=== PATIENT | male | born 1995 | race Caucasian/White ===

== ENCOUNTER 2019-07-23 22:22 | Emergency (ER) | payer SELFPAY ==
[2019-07-23 22:31] VITALS: BP 151/81; PULSE 117
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
== END 2019-07-23 23:18 | disposition home or self-care (01) ==
LOC: DL.ED 22:22
DX: S29.011A Strain of muscle and tendon of front wall of thorax, initial encounter (principal); Z77.22 Contact with and (suspected) exposure to environmental tobacco smoke (acute) (chronic); V18.0XXA Pedal cycle driver injured in noncollision transport accident in nontraffic accident, initial encounter
CPT/HCPCS: 71101-LT; 99284-25

== ENCOUNTER 2019-10-28 22:09 | Emergency (ER) | payer SELFPAY ==
[2019-10-28 23:05] VITALS: BP 122/92; PULSE 102
== END 2019-10-29 01:31 | disposition left against medical advice (07) ==
LOC: DL.ED 22:09
DX: Z53.21 Procedure and treatment not carried out due to patient leaving prior to being seen by health care provider (principal)

== ENCOUNTER 2021-10-19 13:49 | Inpatient (IN) | payer SELFPAY ==
[2021-10-19] MEDS ORDERED: levETIRAcetam in NaCl (iso-os) 1,000 MG in Premix Bag 1 BAG IV ONE ×2 (14:28)
--- NOTE | 2021-10-19 14:28 | EDM.PDOC ---
ED HPI GENERAL MEDICAL PROBLEM - General Chief Complaint: Neurological Problem Stated Complaint: HAD A SEIZURE, HISTORY OF THEM /VERY CONFUSED Time Seen by Provider: 10/19/21 14:27 Source of Information: Reports: Patient, RN, RN Notes Reviewed History Limitations: Reports: No Limitations - History of Present Illness INITIAL COMMENTS - FREE TEXT/NARRATIVE: Samir is a 26 y/o male with a history seizures who presents to the ED via personal vehicle with complaints of seizure-like activity and confusion. The patient reports he woke in his bedroom to his friends stating his appeared to have a seizure. He is alert and oriented to self, however transiently disoriented to time, situation, and place. He denies recent injuries or falls. He denies pain to his head, neck, trunk, or extremities. He denies recent illness, fever, shaking chills, chest pain, palpitations, dyspepsia, abdominal pain, nausea, vomiting, dysuria, hematuria, diarrhea, hematochezia, or melena. The patient attests to drink 5-6 alcoholic drinks three times a week as well as smoking cannabis nightly; he denies tobacco use. - Related Data Allergies Allergy/AdvReac Type Severity Reaction Status Date / Time shellfish derived Allergy Rash Verified 10/19/21 14:02 Home Meds: Home Meds Folic Acid 1 mg PO DAILY #14 tablet 10/21/21 [Rx] LORazepam [Ativan] 0.5 mg PO Q6H PRN #5 tablet 10/21/21 [Rx] Magnesium Oxide 250 mg PO BIDM #6 tablet 10/21/21 [Rx] Phosphorus #1 [Neutra-Phos] 250 mg PO TID #6 tablet 10/21/21 [Rx] Thiamine [Vitamin B-1] 100 mg PO DAILY #14 tablet 10/21/21 [Rx] Past Medical History - Past Health History Medical/Surgical History: Denies Medical/Surgical History Musculoskeletal History: Reports: Fracture Neurological History: Reports: Seizure - Past Surgical History Other Musculoskeletal Surgeries/Procedures:: fracture ava. tendon repain left hand Social & Family History - Family History Family Medical History: No Pertinent Family History Neurological: Reports: CVA Oncologic: Reports: Colon - Tobacco Use Tobacco Use Status *Q: Never Tobacco User Second Hand Smoke Exposure: No - Caffeine Use Caffeine Use: Reports: Energy Drinks, Soda - Recreational Drug Use Recreational Drug Use: Yes Drug Use in Last 12 Months: Yes Recreational Drug Type: Reports: Marijuana/Hashish Recreational Drug Use Frequency: Daily ED ROS GENERAL - Review of Systems Review Of Systems: Comprehensive ROS is negative, except as noted in HPI. - Physical Exam Exam: See Below Exam Limited By: Altered Mental Status General Appearance: Alert, Mild Distress (Confusion, Resting tremer), Thin, Other (Dissheveled) Eye Exam: Bilateral Eye: EOMI, PERRL (4mm), Other (Scleral icterus, faint) Ears: Normal External Exam, Normal Canal, Hearing Grossly Normal, Normal TMs Nose: Normal Inspection, Normal Mucosa, No Blood Throat/Mouth: Normal Voice, No Airway Compromise. No: Normal Inspection, Normal Oropharynx (Dry mucous membranes) Head Exam: Atraumatic, Normocephalic Neck: Normal Inspection, Supple, Non-Tender, Full Range of Motion Respiratory/Chest: No Respiratory Distress, Lungs Clear, Normal Breath Sounds, No Accessory Muscle Use, Chest Non-Tender Cardiovascular: Normal Peripheral Pulses, Regular Rate, Rhythm, No Gallop, No Murmur, No Rub, Tachycardia GI/Abdominal: Normal Bowel Sounds, Soft, Non-Tender, No Distention, No Abnormal Bruit, No Mass, Pelvis Stable (Male) Exam: Deferred Rectal (Males) Exam: Deferred Neuro Exam (Abbreviated): Alert, Disoriented (Transiently to place, time, and situation), Abnormal Reflexes, Sensory/Motor Deficit Back Exam: Normal Inspection, Full Range of Motion Extremities: Normal Range of Motion, Non-Tender, No Pedal Edema, Normal Capillary Refill, Other (Tremulous) Psychiatric: Normal Mood Skin Exam: Warm, Dry, Intact, Normal Color, No Rash. No: Cyanosis, Jaundice, Mottled, Pallor Course - Vital Signs Last Recorded V/S: Last Vital Signs Temp 97.3 F 10/21/21 08:11 Pulse 96 10/21/21 08:11 Resp 20 10/21/21 08:11 BP 147/97 H 10/21/21 08:11 Pulse Ox 99 10/21/21 08:11 - Orders/Labs/Meds Labs: Laboratory Tests 10/19/21 10/19/21 10/19/21 Range/Units 14:06 14:19 14:19 WBC 9.2 (5.0-10.0) 10^3/uL RBC 4.66 (4.6-6.2) 10^6/uL Hgb 15.7 (14.0-18.0) g/dL Hct 43.8 (40.0-54.0) % MCV 94.0 (80-100) fL MCH 33.7 (27.0-34.0) pg MCHC 35.8 H (33.0-35.0) g/dL Plt Count 203 (150-450) 10^3/uL Neut % (Auto) 74.4 (42.2-75.2) % Lymph % (Auto) 10.0 L (20.5-50.1) % Lyman % (Auto) 15.5 H (2-8) % Eos % (Auto) 0.1 L (1.0-3.0) % Baso % (Auto) 0.0 (0.0-1.0) % Sodium 130 L (136-145) mmol/L Potassium 2.1 L* (3.5-5.1) mmol/L Chloride 81 L (98-107) mmol/L Carbon Dioxide 36 H (21-32) mmol/L Anion Gap 15.1 H (7-13) mEq/L BUN 15 (7-18) mg/dL Creatinine 1.16 (0.70-1.30) mg/dL Est Cr Clr Drug Dosing 115.34 mL/min Estimated GFR (MDRD) > 60 BUN/Creatinine Ratio 12.9 (No establ ref range) Glucose 144 H (70-99) mg/dL POC Glucose 162 H (70-99) mg/dL Hemoglobin A1c (<5.7) % Lactic Acid (0.4-2.0) mmol/L Calcium 8.2 L (8.5-10.1) mg/dL Magnesium 0.8 L (1.8-2.4) mg/dL Total Bilirubin 2.3 H (0.2-1.0) mg/dL AST 202 H (15-37) U/L ALT 102 H (16-63) U/L Alkaline Phosphatase 162 H (46-116) U/L Ammonia (11-32) umol/L Troponin I High Sens 7 (<=76) pg/mL C-Reactive Protein 0.8 (0.0-0.9) mg/dL Total Protein 8.1 (6.4-8.2) g/dL Albumin 3.6 (3.4-5.0) g/dL Globulin 4.5 Albumin/Globulin Ratio 0.8 Ethyl Alcohol < 3 (0) mg/dL Ketones SARS-CoV-2 RNA (YURI) (NEGATIVE) 10/19/21 10/19/21 10/19/21 Range/Units 14:19 14:19 14:19 WBC (5.0-10.0) 10^3/uL RBC (4.6-6.2) 10^6/uL Hgb (14.0-18.0) g/dL Hct (40.0-54.0) % MCV (80-100) fL MCH (27.0-34.0) pg MCHC (33.0-35.0) g/dL Plt Count (150-450) 10^3/uL Neut % (Auto) (42.2-75.2) % Lymph % (Auto) (20.5-50.1) % Lyman % (Auto) (2-8) % Eos % (Auto) (1.0-3.0) % Baso % (Auto) (0.0-1.0) % Sodium (136-145) mmol/L Potassium (3.5-5.1) mmol/L Chloride (98-107) mmol/L Carbon Dioxide (21-32) mmol/L Anion Gap (7-13) mEq/L BUN (7-18) mg/dL Creatinine (0.70-1.30) mg/dL Est Cr Clr Drug Dosing mL/min Estimated GFR (MDRD) BUN/Creatinine Ratio (No establ ref range) Glucose (70-99) mg/dL POC Glucose (70-99) mg/dL Hemoglobin A1c 5.3 (<5.7) % Lactic Acid 2.9 H* (0.4-2.0) mmol/L Calcium (8.5-10.1) mg/dL Magnesium (1.8-2.4) mg/dL Total Bilirubin (0.2-1.0) mg/dL AST (15-37) U/L ALT (16-63) U/L Alkaline Phosphatase (46-116) U/L Ammonia (11-32) umol/L Troponin I High Sens (<=76) pg/mL C-Reactive Protein (0.0-0.9) mg/dL Total Protein (6.4-8.2) g/dL Albumin (3.4-5.0) g/dL Globulin Albumin/Globulin Ratio Ethyl Alcohol (0) mg/dL Ketones Negative SARS-CoV-2 RNA (YURI) (NEGATIVE) 10/19/21 10/19/21 10/19/21 Range/Units 14:50 15:46 15:46 WBC (5.0-10.0) 10^3/uL RBC (4.6-6.2) 10^6/uL Hgb (14.0-18.0) g/dL Hct (40.0-54.0) % MCV (80-100) fL MCH (27.0-34.0) pg MCHC (33.0-35.0) g/dL Plt Count (150-450) 10^3/uL Neut % (Auto) (42.2-75.2) % Lymph % (Auto) (20.5-50.1) % Lyman % (Auto) (2-8) % Eos % (Auto) (1.0-3.0) % Baso % (Auto) (0.0-1.0) % Sodium 132 L (136-145) mmol/L Potassium 2.1 L* (3.5-5.1) mmol/L Chloride 84 L (98-107) mmol/L Carbon Dioxide 40 H (21-32) mmol/L Anion Gap 10.1 (7-13) mEq/L BUN 15 (7-18) mg/dL Creatinine 1.21 (0.70-1.30) mg/dL Est Cr Clr Drug Dosing 110.57 mL/min Estimated GFR (MDRD) > 60 BUN/Creatinine Ratio 12.4 (No establ ref range) Glucose 115 H (70-99) mg/dL POC Glucose (70-99) mg/dL Hemoglobin A1c (<5.7) % Lactic Acid (0.4-2.0) mmol/L Calcium 8.2 L (8.5-10.1) mg/dL Magnesium 1.1 L (1.8-2.4) mg/dL Total Bilirubin 2.2 H (0.2-1.0) mg/dL AST 201 H (15-37) U/L ALT 105 H (16-63) U/L Alkaline Phosphatase 155 H (46-116) U/L Ammonia 12 (11-32) umol/L Troponin I High Sens (<=76) pg/mL C-Reactive Protein (0.0-0.9) mg/dL Total Protein 7.8 (6.4-8.2) g/dL Albumin 3.5 (3.4-5.0) g/dL Globulin 4.3 Albumin/Globulin Ratio 0.8 Ethyl Alcohol (0) mg/dL Ketones SARS-CoV-2 RNA (YUIR) Negative (NEGATIVE) Meds: Medications Discontinued Medications Generic Name Dose Route Start Last Admin Trade Name Freq PRN Reason Stop Dose Admin Acetaminophen 650 mg 10/19/21 18:10 Acetaminophen 325 Mg Tab PO Q4H PRN Pain (Mild 1-3)/fever Docusate Sodium 100 mg 10/19/21 18:10 Docusate Sodium 100 Mg Cap PO BID PRN Constipation Folic Acid 1 mg 10/20/21 08:00 10/21/21 09:33 Folic Acid 1 Mg Tab PO 1 mg DAILY ZAHRAA Administration Heparin Sodium (Porcine) 5,000 units 10/19/21 22:00 10/21/21 06:00 Heparin Sodium 5,000 Units/Ml Vial SUBCUT 5,000 units Q8HR ZAHRAA Administration Levetiracetam 1,000 mg/ Premix 200 mls @ 800 mls/hr 10/19/21 14:28 10/19/21 15:01 IV 10/19/21 14:29 800 mls/hr ONETIME ONE Administration Potassium Chloride/Sodium Chloride 1,000 mls @ 150 mls/hr 10/19/21 15:15 10/21/21 10:35 Normal Saline With 40 Meq Kcl IV 150 mls/hr ASDIRECTED ZAHRAA Administration Magnesium Sulfate 2 gm/ Premix 50 mls @ 25 mls/hr 10/19/21 15:04 10/19/21 15:14 IV 10/19/21 17:03 25 mls/hr ONETIME ONE Administration Potassium Chloride 10 meq/ 100 mls @ 50 mls/hr 10/19/21 17:15 Premix IV 10/20/21 05:14 Q2H ZAHRAA Potassium Chloride 10 meq/ 100 mls @ 50 mls/hr 10/19/21 19:30 10/20/21 05:36 Premix IV 10/20/21 07:29 50 mls/hr Q2H ZAHRAA Administration Lorazepam 0 mg 10/19/21 17:46 10/21/21 01:05 Lorazepam 0.5 Mg Tab PO 2 mg TITRATE PRN Administration [facility] protocol Protocol Lorazepam 0 mg 10/19/21 17:46 10/20/21 22:41 Lorazepam 2 Mg/Ml Sdv IVPUSH 2 mg TITRATE PRN Administration [facility] protocol Protocol Magnesium Oxide 250 mg 10/21/21 18:00 Magnesium Oxide 250 Mg Tab PO 10/22/21 08:01 BIDMEALS ZAHRAA Multivitamins/Minerals 1 tab 10/20/21 09:00 10/21/21 09:32 Multivitamins With Iron/Calcium/Folic Acid/Minerals Tab PO 1 tab DAILY ZAHRAA Administration Ondansetron HCl 4 mg 10/19/21 18:10 Ondansetron 4 Mg Tab.Dis PO Q6H PRN nausea, able to take PO Ondansetron HCl 4 mg 10/19/21 18:10 Ondansetron 4 Mg/2 Ml Sdv IVPUSH Q6H PRN Nausea/Vomiting Oxycodone HCl 5 mg 10/19/21 18:10 10/19/21 19:45 Oxycodone 5 Mg Tab PO 5 mg Q4H PRN Administration Pain (moderate 4-6) Sodium Chloride 10 ml 10/19/21 21:00 10/21/21 09:34 Sodium Chloride 0.9% 10 Ml Syringe FLUSH 10 ml 0900,2100 ZAHRAA Administration Sodium Phosphate 250 mg 10/21/21 13:00 Phosphorus #1 250 Mg Tab PO QID ZAHRAA Temazepam 15 mg 10/19/21 18:10 Temazepam 15 Mg Cap PO BEDTIME PRN Sleep Thiamine HCl 100 mg 10/20/21 09:00 10/21/21 09:33 Thiamine 100 Mg Tab PO 100 mg DAILY ZAHRAA Administration - Radiology Interpretation Free Text/Narrative:: [facility] Final Radiology Report Call: [phone] assistance Online chat: [email or web address] Name: SAMIR RAJAN Age: 26Years M Date: 10/19/2021 SSN: -- : [id number] Study: CT HEAD WO CONT Requesting Physician: Moriah Calderon Images: [id number] Addl Studies: Provided Clinical History: Seizure w/persistent disorientation Contrast: Without Contrast Medium: Contrast Amount: Contrast Method: CONFIDENTIALITY STATEMENT This report is intended only for use by the referring physician, and only in accordance with law. If you received this in error, call [phone]. Page 1 of 1 PROCEDURE INFORMATION: Exam: CT Head Without Contrast Exam date and time: 10/19/2021 3:33 PM Age: 26 years old Clinical indication: Other: Seizure; Additional info: Seizure w/persistent disorientation TECHNIQUE: Imaging protocol: Computed tomography of the head without contrast. Radiation optimization: All CT scans at this facility use at least one of these dose optimization techniques: automated exposure control; mA and/or kV adjustment per patient size (includes targeted exams where dose is matched to clinical indication); or iterative reconstruction. COMPARISON: No relevant prior studies available. FINDINGS: Brain: Normal. No hemorrhage. Unremarkable white matter. No mass effect. Cerebral ventricles: No ventriculomegaly. Paranasal sinuses: Visualized sinuses are unremarkable. No fluid levels. Mastoid air cells: Visualized mastoid air cells are well aerated. Bones/joints: Unremarkable. No acute fracture. Soft tissues: Unremarkable. IMPRESSION: No acute intracranial abnormality. Thank you for allowing us to participate in the care of your patient. Dictated and Authenticated by: Nickolas Norman MD 10/19/2021 4:13 PM Central Time ([place] & [place]) - Re-Assessments/Exams Free Text/Narrative Re-Assessment/Exam: 10/19/[address] obtained given AMS. Keppra 1gm IVPB administered. NS KCl 40mEq at 250mLs/hr, and Mag Sulfate 2gm IVPB administered. Case discussed with Dr. Best who accepted patient for admission to this facility for AMS and hypokalemia. Findings of examination, lab work, and imaging reviewed with patient. Patient verbalized understanding and agreement with the plan of care. Departure - Departure Time of Disposition: 16:20 Disposition: Refer to Observation Clinical Impression: Hypokalemia, Hypomagnesemia, Elevated liver enzymes Altered mental status Qualifiers: Altered mental status type: delirium Qualified Code(s): R41.0 - Disorientation, unspecified - Discharge Information
[2021-10-19 14:51] LABS: ANION GAP 15.1 mEq/L (7-13); CHLORIDE,CL 81 mmol/L (98-107); SODIUM,NA 130 mmol/L (136-145)
[2021-10-19] MEDS ORDERED: Magnesium Sulfate/Water 2 GM in Premix Bag 1 BAG IV ONE (15:04)
[2021-10-19] MEDS: Sodium Chloride 0.9% with KCl 1,000 ML IV SCH ×3 (15:20→23:31)
[2021-10-19 15:35] LABS: HEMOGLOBIN A1C 5.3 % (<5.7)
--- NOTE | 2021-10-19 16:13 | CT ---
PROCEDURE INFORMATION: Exam: CT Head Without Contrast Exam date and time: 10/19/2021 3:33 PM Age: 26 years old Clinical indication: Other: Seizure; Additional info: Seizure w/persistent disorientation TECHNIQUE: Imaging protocol: Computed tomography of the head without contrast. Radiation optimization: All CT scans at this facility use at least one of these dose optimization techniques: automated exposure control; mA and/or kV adjustment per patient size (includes targeted exams where dose is matched to clinical indication); or iterative reconstruction. COMPARISON: No relevant prior studies available. FINDINGS: Brain: Normal. No hemorrhage. Unremarkable white matter. No mass effect. Cerebral ventricles: No ventriculomegaly. Paranasal sinuses: Visualized sinuses are unremarkable. No fluid levels. Mastoid air cells: Visualized mastoid air cells are well aerated. Bones/joints: Unremarkable. No acute fracture. Soft tissues: Unremarkable. IMPRESSION: No acute intracranial abnormality.
[2021-10-19 16:31] LABS: ANION GAP 10.1 mEq/L (7-13); CHLORIDE,CL 84 mmol/L (98-107); SODIUM,NA 132 mmol/L (136-145)
[2021-10-19] MEDS ORDERED: Potassium Chloride 10 MEQ in Premix Bag 1 BAG IV SCH (17:15)
[2021-10-19] MEDS ORDERED: LORazepam 0.5 MG Tab PO PRN (17:46)
[2021-10-19] MEDS ORDERED: Acetaminophen 325 MG Tab PO PRN (18:10)
[2021-10-19] MEDS ORDERED: Docusate Sodium 100 MG Cap PO PRN (18:10)
[2021-10-19] MEDS ORDERED: Ondansetron 4 MG Tab.DIS PO PRN (18:10)
[2021-10-19] MEDS ORDERED: oxyCODONE 5 MG Tab PO PRN (18:10)
[2021-10-19] MEDS ORDERED: Ondansetron 4 MG/2 ML SDV IVPUSH PRN (18:10)
[2021-10-19] MEDS ORDERED: Temazepam 15 MG Cap PO PRN (18:10)
--- NOTE | 2021-10-19 18:26 | PCM.HP ---
H&P History of Present Illness - General Date of Service: 10/19/21 Admit Problem/Dx: Admission Diagnosis/Problem Admission Diagnosis/Problem Hypokalemia Source of Information: Patient History Limitations: Reports: Altered Mental Status - History of Present Illness Initial Comments - Free Text/Narative: patient is poor historian in summary he does not know how he ended up in the ER per report he had seizure like activity and friends brought him in to the er he reports drinking 5 vodka drinks on working nights reports marijuana use he admits diarrhea x 1 admits occasional morning vomiting no h/a, no fever, no abd pain - Related Data Allergies/Adverse Reactions: Allergies Allergy/AdvReac Type Severity Reaction Status Date / Time shellfish derived Allergy Rash Verified 10/19/21 14:02 Home Medications: Home Meds . [No Known Home Meds] 03/26/15 [History] Past Medical History - Past Health History Medical/Surgical History: Denies Medical/Surgical History Musculoskeletal History: Reports: Fracture Neurological History: Reports: Seizure - Past Surgical History Other Musculoskeletal Surgeries/Procedures:: fracture ava. tendon repain left hand Social & Family History - Family History Family Medical History: No Pertinent Family History Neurological: Reports: CVA Oncologic: Reports: Colon - Tobacco Use Tobacco Use Status *Q: Never Tobacco User Second Hand Smoke Exposure: No - Caffeine Use Caffeine Use: Reports: Energy Drinks, Soda - Recreational Drug Use Recreational Drug Use: Yes Drug Use in Last 12 Months: Yes Recreational Drug Type: Reports: Marijuana/Hashish Recreational Drug Use Frequency: Daily H&P Review of Systems - Review of Systems: Review Of Systems: See Below General: Denies: Fever, Chills, Malaise Pulmonary: Denies: Shortness of Breath Cardiovascular: Denies: Chest Pain Gastrointestinal: Reports: Diarrhea, Nausea, Vomiting. Denies: Abdominal Pain Genitourinary: Denies: Dysuria Psychiatric: Reports: Confusion. Denies: Hallucinations Exam - Exam Exam: See Below - Vital Signs Vital Signs: Last Vital Signs Temp 97.5 F 10/19/21 13:54 Pulse 117 H 10/19/21 13:54 Resp 18 10/19/21 13:54 BP 129/99 H 10/19/21 13:54 Pulse Ox 95 10/19/21 13:54 Weight: 190 lb 8 oz - Exam General: Alert, Oriented Neck: Supple Lungs: Clear to Auscultation, Normal Respiratory Effort Cardiovascular: Regular Rate, Regular Rhythm GI/Abdominal Exam: Normal Bowel Sounds, Soft, Non-Tender Extremities: No Pedal Edema Skin: Warm, Dry Neuro Extensive - Mental Status: Alert, Other (oriented to place, person but not to recent events) Psychiatric: Alert, Normal Affect, Normal Mood - Patient Data Lab Results Last 24 hrs: Laboratory Results - last 24 hr 10/19/21 10/19/21 10/19/21 Range/Units 14:06 14:19 14:19 WBC 9.2 (5.0-10.0) 10^3/uL RBC 4.66 (4.6-6.2) 10^6/uL Hgb 15.7 (14.0-18.0) g/dL Hct 43.8 (40.0-54.0) % MCV 94.0 (80-100) fL MCH 33.7 (27.0-34.0) pg MCHC 35.8 H (33.0-35.0) g/dL Plt Count 203 (150-450) 10^3/uL Neut % (Auto) 74.4 (42.2-75.2) % Lymph % (Auto) 10.0 L (20.5-50.1) % [place] % (Auto) 15.5 H (2-8) % Eos % (Auto) 0.1 L (1.0-3.0) % Baso % (Auto) 0.0 (0.0-1.0) % Sodium 130 L (136-145) mmol/L Potassium 2.1 L* (3.5-5.1) mmol/L Chloride 81 L (98-107) mmol/L Carbon Dioxide 36 H (21-32) mmol/L Anion Gap 15.1 H (7-13) mEq/L BUN 15 (7-18) mg/dL Creatinine 1.16 (0.70-1.30) mg/dL Est Cr Clr Drug Dosing 115.34 mL/min Estimated GFR (MDRD) > 60 BUN/Creatinine Ratio 12.9 (No establ ref range) Glucose 144 H (70-99) mg/dL POC Glucose 162 H (70-99) mg/dL Hemoglobin A1c (<5.7) % Lactic Acid (0.4-2.0) mmol/L Calcium 8.2 L (8.5-10.1) mg/dL Magnesium 0.8 L (1.8-2.4) mg/dL Total Bilirubin 2.3 H (0.2-1.0) mg/dL AST 202 H (15-37) U/L ALT 102 H (16-63) U/L Alkaline Phosphatase 162 H (46-116) U/L Ammonia (11-32) umol/L Troponin I High Sens 7 (<=76) pg/mL C-Reactive Protein 0.8 (0.0-0.9) mg/dL Total Protein 8.1 (6.4-8.2) g/dL Albumin 3.6 (3.4-5.0) g/dL Globulin 4.5 Albumin/Globulin Ratio 0.8 Ethyl Alcohol < 3 (0) mg/dL Ketones SARS-CoV-2 RNA ([facility]URI) (NEGATIVE) 10/19/21 10/19/21 10/19/21 Range/Units 14:19 14:19 14:19 WBC (5.0-10.0) 10^3/uL RBC (4.6-6.2) 10^6/uL Hgb (14.0-18.0) g/dL Hct (40.0-54.0) % MCV (80-100) fL MCH (27.0-34.0) pg MCHC (33.0-35.0) g/dL Plt Count (150-450) 10^3/uL Neut % (Auto) (42.2-75.2) % Lymph % (Auto) (20.5-50.1) % [place] % (Auto) (2-8) % Eos % (Auto) (1.0-3.0) % Baso % (Auto) (0.0-1.0) % Sodium (136-145) mmol/L Potassium (3.5-5.1) mmol/L Chloride (98-107) mmol/L Carbon Dioxide (21-32) mmol/L Anion Gap (7-13) mEq/L BUN (7-18) mg/dL Creatinine (0.70-1.30) mg/dL Est Cr Clr Drug Dosing mL/min Estimated GFR (MDRD) BUN/Creatinine Ratio (No establ ref range) Glucose (70-99) mg/dL POC Glucose (70-99) mg/dL Hemoglobin A1c 5.3 (<5.7) % Lactic Acid 2.9 H* (0.4-2.0) mmol/L Calcium (8.5-10.1) mg/dL Magnesium (1.8-2.4) mg/dL Total Bilirubin (0.2-1.0) mg/dL AST (15-37) U/L ALT (16-63) U/L Alkaline Phosphatase (46-116) U/L Ammonia (11-32) umol/L Troponin I High Sens (<=76) pg/mL C-Reactive Protein (0.0-0.9) mg/dL Total Protein (6.4-8.2) g/dL Albumin (3.4-5.0) g/dL Globulin Albumin/Globulin Ratio Ethyl Alcohol (0) mg/dL Ketones Negative SARS-CoV-2 RNA (YURI) (NEGATIVE) 10/19/21 10/19/21 10/19/21 Range/Units 14:50 15:46 15:46 WBC (5.0-10.0) 10^3/uL RBC (4.6-6.2) 10^6/uL Hgb (14.0-18.0) g/dL Hct (40.0-54.0) % MCV (80-100) fL MCH (27.0-34.0) pg MCHC (33.0-35.0) g/dL Plt Count (150-450) 10^3/uL Neut % (Auto) (42.2-75.2) % Lymph % (Auto) (20.5-50.1) % [place] % (Auto) (2-8) % Eos % (Auto) (1.0-3.0) % Baso % (Auto) (0.0-1.0) % Sodium 132 L (136-145) mmol/L Potassium 2.1 L* (3.5-5.1) mmol/L Chloride 84 L (98-107) mmol/L Carbon Dioxide 40 H (21-32) mmol/L Anion Gap 10.1 (7-13) mEq/L BUN 15 (7-18) mg/dL Creatinine 1.21 (0.70-1.30) mg/dL Est Cr Clr Drug Dosing 110.57 mL/min Estimated GFR (MDRD) > 60 BUN/Creatinine Ratio 12.4 (No establ ref range) Glucose 115 H (70-99) mg/dL POC Glucose (70-99) mg/dL Hemoglobin A1c (<5.7) % Lactic Acid (0.4-2.0) mmol/L Calcium 8.2 L (8.5-10.1) mg/dL Magnesium 1.1 L (1.8-2.4) mg/dL Total Bilirubin 2.2 H (0.2-1.0) mg/dL AST 201 H (15-37) U/L ALT 105 H (16-63) U/L Alkaline Phosphatase 155 H (46-116) U/L Ammonia 12 (11-32) umol/L Troponin I High Sens (<=76) pg/mL C-Reactive Protein (0.0-0.9) mg/dL Total Protein 7.8 (6.4-8.2) g/dL Albumin 3.5 (3.4-5.0) g/dL Globulin 4.3 Albumin/Globulin Ratio 0.8 Ethyl Alcohol (0) mg/dL Ketones SARS-CoV-2 RNA (YURI) Negative (NEGATIVE) Result Diagrams: 10/19/21 14:19 10/19/21 15:46 - Problem List (1) Hypokalemia SNOMED Code(s): 79165080 ICD Code: E87.6 - HYPOKALEMIA Status: Acute Current Visit: Yes (2) Hyponatremia SNOMED Code(s): 45335285 ICD Code: E87.1 - HYPO-OSMOLALITY AND HYPONATREMIA Status: Acute Current Visit: Yes (3) Seizure SNOMED Code(s): 91586438 ICD Code: R56.9 - UNSPECIFIED CONVULSIONS Status: Acute Current Visit: Yes (4) Alcohol abuse SNOMED Code(s): 02840777 ICD Code: F10.10 - ALCOHOL ABUSE, UNCOMPLICATED Status: Acute Current Visit: Yes (5) Alcohol addiction SNOMED Code(s): 26108175 ICD Code: F10.20 - ALCOHOL DEPENDENCE, UNCOMPLICATED Status: Acute Current Visit: Yes Problem List Initiated/Reviewed/Updated: Yes Orders Last 24hrs: Active Orders 24 hr Category Date Time Status Admission Diagnosis [ADT] Stat ADT 10/19/21 16:18 Ordered Admission Status [Patient Status] [ADT] Routine ADT 10/19/21 16:18 Active Oxygen Therapy [RC] PRN Care 10/19/21 18:10 Ordered Peripheral IV Care [RC] . DIRECTED Care 10/19/21 18:11 Ordered Telemetry Monitoring [Cardiac Monitoring] [RC] . Care 10/19/21 17:15 Active DIRECTED Up With Assistance [RC] ASDIRECTED Care 10/19/21 18:10 Ordered VTE/DVT Education [RC] PER UNIT ROUTINE Care 10/19/21 18:10 Ordered Vital Signs [RC] Q4H Care 10/19/21 18:10 Ordered Regular Diet [DIET] Diet 10/19/21 Breakfast Ordered BASIC METABOLIC PANEL,BMP [CHEM] AM Lab 10/20/21 05:15 Ordered CBC WITH AUTO DIFF [HEME] AM Lab 10/20/21 05:15 Ordered DRUG SCREEN URINE BIORAD [URCHEM] Urgent Lab 10/19/21 14:25 Ordered HEPATIC FUNCTION PANEL,HFP [CHEM] AM Lab 10/20/21 05:11 Ordered LACTIC ACID [CHEM] Routine Lab 10/19/21 16:54 Ordered LIPASE [CHEM] AM Lab 10/20/21 05:11 Ordered UA RFX KEMAL AND CULT IF INDIC [URIN] Stat Lab 10/19/21 14:25 Ordered Acetaminophen [TylenoL] Med 10/19/21 18:10 Ordered 650 mg PO Q4H PRN Docusate Sodium [Colace] Med 10/19/21 18:10 Ordered 100 mg PO BID PRN Folic Acid Med 10/20/21 08:00 Ordered 1 mg PO DAILY Heparin Sodium Med 10/19/21 22:00 Ordered 5,000 units SUBCUT Q8HR LORazepam [Ativan] Med 10/19/21 17:46 Ordered See Protocol IVPUSH TITRATE PRN LORazepam [Ativan] Med 10/19/21 17:46 Ordered See Protocol PO TITRATE PRN Multivitamins w-Iron/Ca/FA/Min [Thera M Plus] Med 10/20/21 09:00 Ordered 1 tab PO DAILY Ondansetron [Zofran ODT] Med 10/19/21 18:10 Ordered 4 mg PO Q6H PRN Ondansetron [Zofran] Med 10/19/21 18:10 Ordered 4 mg IVPUSH Q6H PRN Potassium Chloride [KCl in Water 10 MEQ/100 ML] 10 meq Med 10/19/21 17:15 Active Premix Bag 1 bag IV Q2H Sodium Chloride 0.9% [Saline Flush] Med 10/19/21 21:00 Ordered 10 ml FLUSH 0900,2100 Sodium Chloride 0.9% with KCl [Normal Saline with 40 Med 10/19/21 15:15 Active mEq KCl] 1,000 ml IV ASDIRECTED Temazepam [Restoril] Med 10/19/21 18:10 Ordered 15 mg PO BEDTIME PRN Thiamine [Vitamin B-1] Med 10/20/21 09:00 Ordered 100 mg PO DAILY oxyCODONE Med 10/19/21 18:10 Ordered 5 mg PO Q4H PRN Peripheral IV Insertion Adult [OM.PC] Routine Oth 10/19/21 18:10 Ordered Seizure Precautions [OM.PC] Routine Oth 10/19/21 17:46 Ordered Resuscitation Status Routine Resus Stat 10/19/21 18:10 Ordered Medication Orders Acetaminophen (Acetaminophen 325 Mg Tab) 650 mg PO Q4H PRN PRN Reason: Pain (Mild 1-3)/fever Docusate Sodium (Docusate Sodium 100 Mg Cap) 100 mg PO BID PRN PRN Reason: Constipation Folic Acid (Folic Acid 1 Mg Tab) 1 mg PO DAILY [facility] Heparin Sodium (Porcine) (Heparin Sodium 5,000 Units/Ml Vial) 5,000 units SUB CUT Q8HR [facility] Potassium Chloride/Sodium Chloride (Normal Saline With 40 Meq Kcl) 1,000 mls @ 250 mls/hr IV ASDIRECTED [facility]AHRAA Last Admin: 10/19/21 15:20 Dose: 250 mls/hr Documented by: WARNER Potassium Chloride 10 meq/ (Premix) 100 mls @ 50 mls/hr IV Q2H [facility]AA Stop: 10/20/21 05:14 Lorazepam (Lorazepam 0.5 Mg Tab) 0 mg PO TITRATE PRN; Protocol PRN Reason: [facility] protocol Lorazepam (Lorazepam 2 Mg/Ml Sdv) 0 mg IVPUSH TITRATE PRN; Protocol PRN Reason: [facility] protocol Multivitamins/Minerals (Multivitamins With Iron/Calcium/Folic Acid/Minerals Tab) 1 tab PO DAILY [facility] Ondansetron HCl (Ondansetron 4 Mg Tab.Dis) 4 mg PO Q6H PRN PRN Reason: nausea, able to take PO Ondansetron HCl (Ondansetron 4 Mg/2 Ml Sdv) 4 mg IVPUSH Q6H PRN PRN Reason: Nausea/Vomiting Oxycodone HCl (Oxycodone 5 Mg Tab) 5 mg PO Q4H PRN PRN Reason: Pain (moderate 4-6) Sodium Chloride (Sodium Chloride 0.9% 10 Ml Syringe) 10 ml FLUSH 0900,2100 [facility] Temazepam (Temazepam 15 Mg Cap) 15 mg PO BEDTIME PRN PRN Reason: Sleep Thiamine HCl (Thiamine 100 Mg Tab) 100 mg PO DAILY [facility] Assessment/Plan Comment:: Chronic Alcohol abuse Give thiamine folic acid, multivitamin Recheck electrolytes in AM Alcohol intoxication Hydrate well High risk for alcohol withdrawal Start Ativan IV or PO per [facility] protocol Hyponatremia Will hydrate well Recheck in AM Severe hypokalemia Will replace with IV KCL Recheck in AM Severe hypomagnesemia Replace with IV magnesium Recheck in AM Abnormal liver enzymes Likely due to alcoholic hepatitis Obtain RUQ us r/o cholelithiasis, Check lft, lipase in AM Possible seizure Syncope Likely related to alcohol withdrawal Seizure precautions Given keppra in ER Hold off on further antiseizure meds Lactic acidosis Likely related to seizure dvt prophylaxis sq heparin
[2021-10-19 18:53] LABS: METHAMPHETAMINES,URINE NEGATIVE (NEGATIVE)
[2021-10-19 18:54] LABS: AMPHETAMINES,URINE NEGATIVE (NEGATIVE); BARBITURATES,URINE NEGATIVE (NEGATIVE); BENZODIAZEPINE,URINE NEGATIVE (NEGATIVE); MDMA (ECSTASY), URINE NEGATIVE (NEGATIVE); METHADONE,URINE NEGATIVE (NEGATIVE); OPIATES,URINE NEGATIVE (NEGATIVE); OXYCODONE,URINE NEGATIVE (NEGATIVE); PHENCYCLIDINE,URINE NEGATIVE (NEGATIVE); TCA,URINE NEGATIVE (NEGATIVE)
[2021-10-19] MEDS: Potassium Chloride 10 MEQ in Premix Bag 1 BAG IV SCH ×3 (19:30→23:45)
[2021-10-19] MEDS: Sodium Chloride 0.9% 10 ML Syringe FLUSH SCH (21:45)
[2021-10-19] MEDS: Heparin Sodium 5,000 Units/ML Vial SUBCUT SCH (21:48)
[2021-10-19] MEDS: LORazepam 2 MG/ML SDV IVPUSH PRN ×2 (21:51→22:59)
[2021-10-20] MEDS: Potassium Chloride 10 MEQ in Premix Bag 1 BAG IV SCH ×3 (01:46→05:36)
[2021-10-20] MEDS: LORazepam 2 MG/ML SDV IVPUSH PRN ×7 (01:47→22:41)
[2021-10-20] MEDS: Sodium Chloride 0.9% with KCl 1,000 ML IV SCH ×4 (03:38→18:58)
[2021-10-20] MEDS: Heparin Sodium 5,000 Units/ML Vial SUBCUT SCH ×3 (05:37→22:41)
[2021-10-20 06:44] LABS: ANION GAP 10.6 mEq/L (7-13); CHLORIDE,CL 96 mmol/L (98-107); SODIUM,NA 136 mmol/L (136-145)
[2021-10-20] MEDS: Folic Acid 1 MG Tab PO SCH ×2 (09:23→10:07)
[2021-10-20] MEDS: Thiamine 100 MG Tab PO SCH (09:23)
[2021-10-20] MEDS: Multivitamins with Iron/Calcium/Folic Acid/Minerals Tab PO SCH (09:23)
--- NOTE | 2021-10-20 09:51 | PCM.PN ---
- General Info Date of Service: 10/20/21 Admission Dx/Problem (Free Text): Admission Diagnosis/Problem Admission Diagnosis/Problem Hypokalemia Subjective Update: continued to be shaky started prior to admission moderate associated with confusion on admission - improved no apparent hallucination required ativan per [facility] protocol overnight no c/o cp, no sob no seizure, no loc since admission - Review of Systems General: Denies: Fever Pulmonary: Denies: Shortness of Breath Cardiovascular: Denies: Chest Pain Gastrointestinal: Denies: Abdominal Pain Neurological: Reports: Other (tremor). Denies: Confusion - Patient Data Vitals - Most Recent: Last Vital Signs Temp 97.9 F 10/20/21 00:00 Pulse 86 10/20/21 00:00 Resp 16 10/20/21 00:00 BP 118/74 10/20/21 00:00 Pulse Ox 99 10/20/21 00:00 Weight - Most Recent: 191 lb I&O - Last 24 Hours: Intake & Output 10/19/21 10/20/21 10/20/21 22:59 06:59 14:59 Intake Total 400 3500 Output Total 500 200 Balance -100 3300 Lab Results Last 24 Hours: Laboratory Results - last 24 hr 10/19/21 10/19/21 10/19/21 Range/Units 14:06 14:19 14:19 WBC 9.2 (5.0-10.0) 10^3/uL RBC 4.66 (4.6-6.2) 10^6/uL Hgb 15.7 (14.0-18.0) g/dL Hct 43.8 (40.0-54.0) % MCV 94.0 (80-100) fL MCH 33.7 (27.0-34.0) pg MCHC 35.8 H (33.0-35.0) g/dL Plt Count 203 (150-450) 10^3/uL Neut % (Auto) 74.4 (42.2-75.2) % Lymph % (Auto) 10.0 L (20.5-50.1) % Grainger % (Auto) 15.5 H (2-8) % Eos % (Auto) 0.1 L (1.0-3.0) % Baso % (Auto) 0.0 (0.0-1.0) % Sodium 130 L (136-145) mmol/L Potassium 2.1 L* (3.5-5.1) mmol/L Chloride 81 L (98-107) mmol/L Carbon Dioxide 36 H (21-32) mmol/L Anion Gap 15.1 H (7-13) mEq/L BUN 15 (7-18) mg/dL Creatinine 1.16 (0.70-1.30) mg/dL Est Cr Clr Drug Dosing 115.34 mL/min Estimated GFR (MDRD) > 60 BUN/Creatinine Ratio 12.9 (No establ ref range) Glucose 144 H (70-99) mg/dL POC Glucose 162 H (70-99) mg/dL Hemoglobin A1c (<5.7) % Lactic Acid (0.4-2.0) mmol/L Calcium 8.2 L (8.5-10.1) mg/dL Magnesium 0.8 L (1.8-2.4) mg/dL Total Bilirubin 2.3 H (0.2-1.0) mg/dL Direct Bilirubin (0.0-0.2) mg/dL Indirect Bilirubin AST 202 H (15-37) U/L ALT 102 H (16-63) U/L Alkaline Phosphatase 162 H (46-116) U/L Ammonia (11-32) umol/L Troponin I High Sens 7 (<=76) pg/mL C-Reactive Protein 0.8 (0.0-0.9) mg/dL Total Protein 8.1 (6.4-8.2) g/dL Albumin 3.6 (3.4-5.0) g/dL Globulin 4.5 Albumin/Globulin Ratio 0.8 Lipase (73-393) U/L Urine Color (YELLOW) Urine Appearance (CLEAR) Urine pH (5.0-9.0) Ur Specific [place] (1.005-1.030) Urine Protein (NEGATIVE) Urine Glucose (UA) (NEGATIVE) Urine Ketones (NEGATIVE) Urine Occult Blood (NEGATIVE) Urine Nitrite (NEGATIVE) Urine Bilirubin (NEGATIVE) Urine Urobilinogen (0.2-1.0) mg/dL Ur Leukocyte Esterase (NEGATIVE) Urine RBC (0-5) /HPF Urine WBC (0-5/HPF) /HPF Ur Epithelial Cells (NOT SEEN) /HPF Amorphous Sediment (NOT SEEN) /HPF Urine Bacteria (0-FEW/HPF) /HPF Granular Casts (Auto) Urine Mucus (NOT SEEN) /LPF Urine Opiates Screen (NEGATIVE) Ur Oxycodone Screen (NEGATIVE) Urine Methadone Screen (NEGATIVE) Ur Barbiturates Screen (NEGATIVE) U Tricyclic Antidepress (NEGATIVE) Ur Phencyclidine Scrn (NEGATIVE) Ur Amphetamine Screen (NEGATIVE) U Methamphetamines Scrn (NEGATIVE) Urine MDMA Screen (NEGATIVE) U Benzodiazepines Scrn (NEGATIVE) Urine Cocaine Screen (NEGATIVE) U Marijuana (THC) Screen (NEGATIVE) Ethyl Alcohol < 3 (0) mg/dL Ketones SARS-CoV-2 RNA (YURI) (NEGATIVE) 10/19/21 10/19/21 10/19/21 Range/Units 14:19 14:19 14:19 WBC (5.0-10.0) 10^3/uL RBC (4.6-6.2) 10^6/uL Hgb (14.0-18.0) g/dL Hct (40.0-54.0) % MCV (80-100) fL MCH (27.0-34.0) pg MCHC (33.0-35.0) g/dL Plt Count (150-450) 10^3/uL Neut % (Auto) (42.2-75.2) % Lymph % (Auto) (20.5-50.1) % Grainger % (Auto) (2-8) % Eos % (Auto) (1.0-3.0) % Baso % (Auto) (0.0-1.0) % Sodium (136-145) mmol/L Potassium (3.5-5.1) mmol/L Chloride (98-107) mmol/L Carbon Dioxide (21-32) mmol/L Anion Gap (7-13) mEq/L BUN (7-18) mg/dL Creatinine (0.70-1.30) mg/dL Est Cr Clr Drug Dosing mL/min Estimated GFR (MDRD) BUN/Creatinine Ratio (No establ ref range) Glucose (70-99) mg/dL POC Glucose (70-99) mg/dL Hemoglobin A1c 5.3 (<5.7) % Lactic Acid 2.9 H* (0.4-2.0) mmol/L Calcium (8.5-10.1) mg/dL Magnesium (1.8-2.4) mg/dL Total Bilirubin (0.2-1.0) mg/dL Direct Bilirubin (0.0-0.2) mg/dL Indirect Bilirubin AST (15-37) U/L ALT (16-63) U/L Alkaline Phosphatase (46-116) U/L Ammonia (11-32) umol/L Troponin I High Sens (<=76) pg/mL C-Reactive Protein (0.0-0.9) mg/dL Total Protein (6.4-8.2) g/dL Albumin (3.4-5.0) g/dL Globulin Albumin/Globulin Ratio Lipase (73-393) U/L Urine Color (YELLOW) Urine Appearance (CLEAR) Urine pH (5.0-9.0) Ur Specific [place] (1.005-1.030) Urine Protein (NEGATIVE) Urine Glucose (UA) (NEGATIVE) Urine Ketones (NEGATIVE) Urine Occult Blood (NEGATIVE) Urine Nitrite (NEGATIVE) Urine Bilirubin (NEGATIVE) Urine Urobilinogen (0.2-1.0) mg/dL Ur Leukocyte Esterase (NEGATIVE) Urine RBC (0-5) /HPF Urine WBC (0-5/HPF) /HPF Ur Epithelial Cells (NOT SEEN) /HPF Amorphous Sediment (NOT SEEN) /HPF Urine Bacteria (0-FEW/HPF) /HPF Granular Casts (Auto) Urine Mucus (NOT SEEN) /LPF Urine Opiates Screen (NEGATIVE) Ur Oxycodone Screen (NEGATIVE) Urine Methadone Screen (NEGATIVE) Ur Barbiturates Screen (NEGATIVE) U Tricyclic Antidepress (NEGATIVE) Ur Phencyclidine Scrn (NEGATIVE) Ur Amphetamine Screen (NEGATIVE) U Methamphetamines Scrn (NEGATIVE) Urine MDMA Screen (NEGATIVE) U Benzodiazepines Scrn (NEGATIVE) Urine Cocaine Screen (NEGATIVE) U Marijuana (THC) Screen (NEGATIVE) Ethyl Alcohol (0) mg/dL Ketones Negative SARS-CoV-2 RNA (YURI) (NEGATIVE) 10/19/21 10/19/21 10/19/21 Range/Units 14:50 15:46 15:46 WBC (5.0-10.0) 10^3/uL RBC (4.6-6.2) 10^6/uL Hgb (14.0-18.0) g/dL Hct (40.0-54.0) % MCV (80-100) fL MCH (27.0-34.0) pg MCHC (33.0-35.0) g/dL Plt Count (150-450) 10^3/uL Neut % (Auto) (42.2-75.2) % Lymph % (Auto) (20.5-50.1) % Grainger % (Auto) (2-8) % Eos % (Auto) (1.0-3.0) % Baso % (Auto) (0.0-1.0) % Sodium 132 L (136-145) mmol/L Potassium 2.1 L* (3.5-5.1) mmol/L Chloride 84 L (98-107) mmol/L Carbon Dioxide 40 H (21-32) mmol/L Anion Gap 10.1 (7-13) mEq/L BUN 15 (7-18) mg/dL Creatinine 1.21 (0.70-1.30) mg/dL Est Cr Clr Drug Dosing 110.57 mL/min Estimated GFR (MDRD) > 60 BUN/Creatinine Ratio 12.4 (No establ ref range) Glucose 115 H (70-99) mg/dL POC Glucose (70-99) mg/dL Hemoglobin A1c (<5.7) % Lactic Acid (0.4-2.0) mmol/L Calcium 8.2 L (8.5-10.1) mg/dL Magnesium 1.1 L (1.8-2.4) mg/dL Total Bilirubin 2.2 H (0.2-1.0) mg/dL Direct Bilirubin (0.0-0.2) mg/dL Indirect Bilirubin AST 201 H (15-37) U/L ALT 105 H (16-63) U/L Alkaline Phosphatase 155 H (46-116) U/L Ammonia 12 (11-32) umol/L Troponin I High Sens (<=76) pg/mL C-Reactive Protein (0.0-0.9) mg/dL Total Protein 7.8 (6.4-8.2) g/dL Albumin 3.5 (3.4-5.0) g/dL Globulin 4.3 Albumin/Globulin Ratio 0.8 Lipase (73-393) U/L Urine Color (YELLOW) Urine Appearance (CLEAR) Urine pH (5.0-9.0) Ur Specific [place] (1.005-1.030) Urine Protein (NEGATIVE) Urine Glucose (UA) (NEGATIVE) Urine Ketones (NEGATIVE) Urine Occult Blood (NEGATIVE) Urine Nitrite (NEGATIVE) Urine Bilirubin (NEGATIVE) Urine Urobilinogen (0.2-1.0) mg/dL Ur Leukocyte Esterase (NEGATIVE) Urine RBC (0-5) /HPF Urine WBC (0-5/HPF) /HPF Ur Epithelial Cells (NOT SEEN) /HPF Amorphous Sediment (NOT SEEN) /HPF Urine Bacteria (0-FEW/HPF) /HPF Granular Casts (Auto) Urine Mucus (NOT SEEN) /LPF Urine Opiates Screen (NEGATIVE) Ur Oxycodone Screen (NEGATIVE) Urine Methadone Screen (NEGATIVE) Ur Barbiturates Screen (NEGATIVE) U Tricyclic Antidepress (NEGATIVE) Ur Phencyclidine Scrn (NEGATIVE) Ur Amphetamine Screen (NEGATIVE) U Methamphetamines Scrn (NEGATIVE) Urine MDMA Screen (NEGATIVE) U Benzodiazepines Scrn (NEGATIVE) Urine Cocaine Screen (NEGATIVE) U Marijuana (THC) Screen (NEGATIVE) Ethyl Alcohol (0) mg/dL Ketones SARS-CoV-2 RNA (YURI) Negative (NEGATIVE) 10/19/21 10/19/21 10/19/21 Range/Units 17:58 18:22 18:22 WBC (5.0-10.0) 10^3/uL RBC (4.6-6.2) 10^6/uL Hgb (14.0-18.0) g/dL Hct (40.0-54.0) % MCV (80-100) fL MCH (27.0-34.0) pg MCHC (33.0-35.0) g/dL Plt Count (150-450) 10^3/uL Neut % (Auto) (42.2-75.2) % Lymph % (Auto) (20.5-50.1) % Grainger % (Auto) (2-8) % Eos % (Auto) (1.0-3.0) % Baso % (Auto) (0.0-1.0) % Sodium (136-145) mmol/L Potassium (3.5-5.1) mmol/L Chloride (98-107) mmol/L Carbon Dioxide (21-32) mmol/L Anion Gap (7-13) mEq/L BUN (7-18) mg/dL Creatinine (0.70-1.30) mg/dL Est Cr Clr Drug Dosing mL/min Estimated GFR (MDRD) BUN/Creatinine Ratio (No establ ref range) Glucose (70-99) mg/dL POC Glucose (70-99) mg/dL Hemoglobin A1c (<5.7) % Lactic Acid 0.8 (0.4-2.0) mmol/L Calcium (8.5-10.1) mg/dL Magnesium (1.8-2.4) mg/dL Total Bilirubin (0.2-1.0) mg/dL Direct Bilirubin (0.0-0.2) mg/dL Indirect Bilirubin AST (15-37) U/L ALT (16-63) U/L Alkaline Phosphatase (46-116) U/L Ammonia (11-32) umol/L Troponin I High Sens (<=76) pg/mL C-Reactive Protein (0.0-0.9) mg/dL Total Protein (6.4-8.2) g/dL Albumin (3.4-5.0) g/dL Globulin Albumin/Globulin Ratio Lipase (73-393) U/L Urine Color [place]vonne (YELLOW) Urine Appearance Clear (CLEAR) Urine pH 6.0 (5.0-9.0) Ur Specific [place] >= 1.030 (1.005-1.030) Urine Protein >=300 H (NEGATIVE) Urine Glucose (UA) 100 H (NEGATIVE) Urine Ketones 15 H (NEGATIVE) Urine Occult Blood Trace-intact H (NEGATIVE) Urine Nitrite Positive H (NEGATIVE) Urine Bilirubin Moderate H (NEGATIVE) Urine Urobilinogen 4.0 H (0.2-1.0) mg/dL Ur Leukocyte Esterase Negative (NEGATIVE) Urine RBC 5-10 H (0-5) /HPF Urine WBC 0-5 (0-5/HPF) /HPF Ur Epithelial Cells Few (NOT SEEN) /HPF Amorphous Sediment Few (NOT SEEN) /HPF Urine Bacteria Few (0-FEW/HPF) /HPF Granular Casts (Auto) Moderate Urine Mucus Moderate H (NOT SEEN) /LPF Urine Opiates Screen Negative (NEGATIVE) Ur Oxycodone Screen Negative (NEGATIVE) Urine Methadone Screen Negative (NEGATIVE) Ur Barbiturates Screen Negative (NEGATIVE) U Tricyclic Antidepress Negative (NEGATIVE) Ur Phencyclidine Scrn Negative (NEGATIVE) Ur Amphetamine Screen Negative (NEGATIVE) U Methamphetamines Scrn Negative (NEGATIVE) Urine MDMA Screen Negative (NEGATIVE) U Benzodiazepines Scrn Negative (NEGATIVE) Urine Cocaine Screen Negative (NEGATIVE) U Marijuana (THC) Screen Positive H (NEGATIVE) Ethyl Alcohol (0) mg/dL Ketones SARS-CoV-2 RNA (YURI) (NEGATIVE) 10/20/21 10/20/21 Range/Units 06:05 06:05 WBC 5.4 (5.0-10.0) 10^3/uL RBC 3.87 L (4.6-6.2) 10^6/uL Hgb 13.0 L D (14.0-18.0) g/dL Hct 37.6 L (40.0-54.0) % MCV 97.2 D (80-100) fL MCH 33.6 (27.0-34.0) pg MCHC 34.6 (33.0-35.0) g/dL Plt Count 164 (150-450) 10^3/uL Neut % (Auto) 70.0 (42.2-75.2) % Lymph % (Auto) 12.4 L (20.5-50.1) % Grainger % (Auto) 17.0 H (2-8) % Eos % (Auto) 0.4 L (1.0-3.0) % Baso % (Auto) 0.2 (0.0-1.0) % Sodium 136 (136-145) mmol/L Potassium 3.6 D (3.5-5.1) mmol/L Chloride 96 L D (98-107) mmol/L Carbon Dioxide 33 H (21-32) mmol/L Anion Gap 10.6 (7-13) mEq/L BUN 10 (7-18) mg/dL Creatinine 0.76 (0.70-1.30) mg/dL Est Cr Clr Drug Dosing 176.04 mL/min Estimated GFR (MDRD) > 60 BUN/Creatinine Ratio (No establ ref range) Glucose 85 (70-99) mg/dL POC Glucose (70-99) mg/dL Hemoglobin A1c (<5.7) % Lactic Acid (0.4-2.0) mmol/L Calcium 7.2 L (8.5-10.1) mg/dL Magnesium (1.8-2.4) mg/dL Total Bilirubin 2.4 H (0.2-1.0) mg/dL Direct Bilirubin 1.1 H (0.0-0.2) mg/dL Indirect Bilirubin 1.3 AST 184 H (15-37) U/L ALT 82 H (16-63) U/L Alkaline Phosphatase 117 H (46-116) U/L Ammonia (11-32) umol/L Troponin I High Sens (<=76) pg/mL C-Reactive Protein (0.0-0.9) mg/dL Total Protein 5.9 L (6.4-8.2) g/dL Albumin 2.6 L (3.4-5.0) g/dL Globulin 3.3 Albumin/Globulin Ratio 0.79 Lipase 76 (73-393) U/L Urine Color (YELLOW) Urine Appearance (CLEAR) Urine pH (5.0-9.0) Ur Specific [place] (1.005-1.030) Urine Protein (NEGATIVE) Urine Glucose (UA) (NEGATIVE) Urine Ketones (NEGATIVE) Urine Occult Blood (NEGATIVE) Urine Nitrite (NEGATIVE) Urine Bilirubin (NEGATIVE) Urine Urobilinogen (0.2-1.0) mg/dL Ur Leukocyte Esterase (NEGATIVE) Urine RBC (0-5) /HPF Urine WBC (0-5/HPF) /HPF Ur Epithelial Cells (NOT SEEN) /HPF Amorphous Sediment (NOT SEEN) /HPF Urine Bacteria (0-FEW/HPF) /HPF Granular Casts (Auto) Urine Mucus (NOT SEEN) /LPF Urine Opiates Screen (NEGATIVE) Ur Oxycodone Screen (NEGATIVE) Urine Methadone Screen (NEGATIVE) Ur Barbiturates Screen (NEGATIVE) U Tricyclic Antidepress (NEGATIVE) Ur Phencyclidine Scrn (NEGATIVE) Ur Amphetamine Screen (NEGATIVE) U Methamphetamines Scrn (NEGATIVE) Urine MDMA Screen (NEGATIVE) U Benzodiazepines Scrn (NEGATIVE) Urine Cocaine Screen (NEGATIVE) U Marijuana (THC) Screen (NEGATIVE) Ethyl Alcohol (0) mg/dL Ketones SARS-CoV-2 RNA (YURI) (NEGATIVE) Fareed Results Last 24 Hours: Microbiology 10/19/21 18:22 Urine Culture - Preliminary Urine, Voided No Growth Med Orders - Current: Current Medications Acetaminophen (Acetaminophen 325 Mg Tab) 650 mg PO Q4H PRN PRN Reason: Pain (Mild 1-3)/fever Docusate Sodium (Docusate Sodium 100 Mg Cap) 100 mg PO BID PRN PRN Reason: Constipation Folic Acid (Folic Acid 1 Mg Tab) 1 mg PO DAILY [facility] Last Admin: 10/20/21 09:23 Dose: 1 mg Documented by: Heparin Sodium (Porcine) (Heparin Sodium 5,000 Units/Ml Vial) 5,000 units SUBCUT Q8HR [facility] Last Admin: 10/20/21 05:37 Dose: 5,000 units Documented by: Potassium Chloride/Sodium Chloride (Normal Saline With 40 Meq Kcl) 1,000 mls @ 150 mls/hr IV ASDIRECTED [facility] Last Admin: 10/20/21 07:37 Dose: 250 mls/hr Documented by: Lorazepam (Lorazepam 0.5 Mg Tab) 0 mg PO TITRATE PRN; Protocol PRN Reason: [facility] protocol Lorazepam (Lorazepam 2 Mg/Ml Sdv) 0 mg IVPUSH TITRATE PRN; Protocol PRN Reason: [facility] protocol Last Admin: 10/20/21 06:26 Dose: 2 mg Documented by: Multivitamins/Minerals (Multivitamins With Iron/Calcium/Folic Acid/Minerals Tab) 1 tab PO DAILY [facility] Last Admin: 10/20/21 09:23 Dose: 1 tab Documented by: Ondansetron HCl (Ondansetron 4 Mg Tab.Dis) 4 mg PO Q6H PRN PRN Reason: nausea, able to take PO Ondansetron HCl (Ondansetron 4 Mg/2 Ml Sdv) 4 mg IVPUSH Q6H PRN PRN Reason: Nausea/Vomiting Oxycodone HCl (Oxycodone 5 Mg Tab) 5 mg PO Q4H PRN PRN Reason: Pain (moderate 4-6) Last Admin: 10/19/21 19:45 Dose: 5 mg Documented by: Sodium Chloride (Sodium Chloride 0.9% 10 Ml Syringe) 10 ml FLUSH 0900,2100 [facility] Last Admin: 10/19/21 21:45 Dose: Not Given Documented by: Temazepam (Temazepam 15 Mg Cap) 15 mg PO BEDTIME PRN PRN Reason: Sleep Thiamine HCl (Thiamine 100 Mg Tab) 100 mg PO DAILY [facility] Last Admin: 10/20/21 09:23 Dose: 100 mg Documented by: Discontinued Medications Levetiracetam 1,000 mg/ Premix 200 mls @ 800 mls/hr IV ONETIME ONE Stop: 10/19/21 14:29 Last Admin: 12/16/21 15:01 Dose: 800 mls/hr Documented by: Magnesium Sulfate 2 gm/ Premix 50 mls @ 25 mls/hr IV ONETIME ONE Stop: 10/19/21 17:03 Last Admin: 10/19/21 15:14 Dose: 25 mls/hr Documented by: Potassium Chloride 10 meq/ (Premix) 100 mls @ 50 mls/hr IV Q2H ZAHRAA Stop: 10/20/21 05:14 Potassium Chloride 10 meq/ (Premix) 100 mls @ 50 mls/hr IV Q2H ZAHRAA Stop: 10/20/21 07:29 Last Admin: 10/20/21 05:36 Dose: 50 mls/hr Documented by: - Exam Quality Assessment: No: Supplemental Oxygen General: Alert, Oriented Neck: Supple Lungs: Clear to Auscultation, Normal Respiratory Effort Cardiovascular: Regular Rate, Regular Rhythm GI/Abdominal Exam: Normal Bowel Sounds, Soft, Non-Tender Extremities: No Pedal Edema Skin: Warm Neurological: No New Focal Deficit, Other (tremor) Psy/Mental Status: Alert, Normal Affect, Normal Mood - Patient Data Lab Results Last 24 hrs: Laboratory Results - last 24 hr 10/19/21 10/19/21 10/19/21 Range/Units 14:06 14:19 14:19 WBC 9.2 (5.0-10.0) 10^3/uL RBC 4.66 (4.6-6.2) 10^6/uL Hgb 15.7 (14.0-18.0) g/dL Hct 43.8 (40.0-54.0) % MCV 94.0 (80-100) fL MCH 33.7 (27.0-34.0) pg MCHC 35.8 H (33.0-35.0) g/dL Plt Count 203 (150-450) 10^3/uL Neut % (Auto) 74.4 (42.2-75.2) % Lymph % (Auto) 10.0 L (20.5-50.1) % [place]inger % (Auto) 15.5 H (2-8) % Eos % (Auto) 0.1 L (1.0-3.0) % Baso % (Auto) 0.0 (0.0-1.0) % Sodium 130 L (136-145) mmol/L Potassium 2.1 L* (3.5-5.1) mmol/L Chloride 81 L (98-107) mmol/L Carbon Dioxide 36 H (21-32) mmol/L Anion Gap 15.1 H (7-13) mEq/L BUN 15 (7-18) mg/dL Creatinine 1.16 (0.70-1.30) mg/dL Est Cr Clr Drug Dosing 115.34 mL/min Estimated GFR (MDRD) > 60 BUN/Creatinine Ratio 12.9 (No establ ref range) Glucose 144 H (70-99) mg/dL POC Glucose 162 H (70-99) mg/dL Hemoglobin A1c (<5.7) % Lactic Acid (0.4-2.0) mmol/L Calcium 8.2 L (8.5-10.1) mg/dL Magnesium 0.8 L (1.8-2.4) mg/dL Total Bilirubin 2.3 H (0.2-1.0) mg/dL Direct Bilirubin (0.0-0.2) mg/dL Indirect Bilirubin AST 202 H (15-37) U/L ALT 102 H (16-63) U/L Alkaline Phosphatase 162 H (46-116) U/L Ammonia (11-32) umol/L Troponin I High Sens 7 (<=76) pg/mL C-Reactive Protein 0.8 (0.0-0.9) mg/dL Total Protein 8.1 (6.4-8.2) g/dL Albumin 3.6 (3.4-5.0) g/dL Globulin 4.5 Albumin/Globulin Ratio 0.8 Lipase (73-393) U/L Urine Color (YELLOW) Urine Appearance (CLEAR) Urine pH (5.0-9.0) Ur Specific [place] (1.005-1.030) Urine Protein (NEGATIVE) Urine Glucose (UA) (NEGATIVE) Urine Ketones (NEGATIVE) Urine Occult Blood (NEGATIVE) Urine Nitrite (NEGATIVE) Urine Bilirubin (NEGATIVE) Urine Urobilinogen (0.2-1.0) mg/dL Ur Leukocyte Esterase (NEGATIVE) Urine RBC (0-5) /HPF Urine WBC (0-5/HPF) /HPF Ur Epithelial Cells (NOT SEEN) /HPF Amorphous Sediment (NOT SEEN) /HPF Urine Bacteria (0-FEW/HPF) /HPF Granular Casts (Auto) Urine Mucus (NOT SEEN) /LPF Urine Opiates Screen (NEGATIVE) Ur Oxycodone Screen (NEGATIVE) Urine Methadone Screen (NEGATIVE) Ur Barbiturates Screen (NEGATIVE) U Tricyclic Antidepress (NEGATIVE) Ur Phencyclidine Scrn (NEGATIVE) Ur Amphetamine Screen (NEGATIVE) U Methamphetamines Scrn (NEGATIVE) Urine MDMA Screen (NEGATIVE) U Benzodiazepines Scrn (NEGATIVE) Urine Cocaine Screen (NEGATIVE) U Marijuana (THC) Screen (NEGATIVE) Ethyl Alcohol < 3 (0) mg/dL Ketones SARS-CoV-2 RNA (YURI) (NEGATIVE) 10/19/21 10/19/21 10/19/21 Range/Units 14:19 14:19 14:19 WBC (5.0-10.0) 10^3/uL RBC (4.6-6.2) 10^6/uL Hgb (14.0-18.0) g/dL Hct (40.0-54.0) % MCV (80-100) fL MCH (27.0-34.0) pg MCHC (33.0-35.0) g/dL Plt Count (150-450) 10^3/uL Neut % (Auto) (42.2-75.2) % Lymph % (Auto) (20.5-50.1) % Grainger % (Auto) (2-8) % Eos % (Auto) (1.0-3.0) % Baso % (Auto) (0.0-1.0) % Sodium (136-145) mmol/L Potassium (3.5-5.1) mmol/L Chloride (98-107) mmol/L Carbon Dioxide (21-32) mmol/L Anion Gap (7-13) mEq/L BUN (7-18) mg/dL Creatinine (0.70-1.30) mg/dL Est Cr Clr Drug Dosing mL/min Estimated GFR (MDRD) BUN/Creatinine Ratio (No establ ref range) Glucose (70-99) mg/dL POC Glucose (70-99) mg/dL Hemoglobin A1c 5.3 (<5.7) % Lactic Acid 2.9 H* (0.4-2.0) mmol/L Calcium (8.5-10.1) mg/dL Magnesium (1.8-2.4) mg/dL Total Bilirubin (0.2-1.0) mg/dL Direct Bilirubin (0.0-0.2) mg/dL Indirect Bilirubin AST (15-37) U/L ALT (16-63) U/L Alkaline Phosphatase (46-116) U/L Ammonia (11-32) umol/L Troponin I High Sens (<=76) pg/mL C-Reactive Protein (0.0-0.9) mg/dL Total Protein (6.4-8.2) g/dL Albumin (3.4-5.0) g/dL Globulin Albumin/Globulin Ratio Lipase (73-393) U/L Urine Color (YELLOW) Urine Appearance (CLEAR) Urine pH (5.0-9.0) Ur Specific [place] (1.005-1.030) Urine Protein (NEGATIVE) Urine Glucose (UA) (NEGATIVE) Urine Ketones (NEGATIVE) Urine Occult Blood (NEGATIVE) Urine Nitrite (NEGATIVE) Urine Bilirubin (NEGATIVE) Urine Urobilinogen (0.2-1.0) mg/dL Ur Leukocyte Esterase (NEGATIVE) Urine RBC (0-5) /HPF Urine WBC (0-5/HPF) /HPF Ur Epithelial Cells (NOT SEEN) /HPF Amorphous Sediment (NOT SEEN) /HPF Urine Bacteria (0-FEW/HPF) /HPF Granular Casts (Auto) Urine Mucus (NOT SEEN) /LPF Urine Opiates Screen (NEGATIVE) Ur Oxycodone Screen (NEGATIVE) Urine Methadone Screen (NEGATIVE) Ur Barbiturates Screen (NEGATIVE) U Tricyclic Antidepress (NEGATIVE) Ur Phencyclidine Scrn (NEGATIVE) Ur Amphetamine Screen (NEGATIVE) U Methamphetamines Scrn (NEGATIVE) Urine MDMA Screen (NEGATIVE) U Benzodiazepines Scrn (NEGATIVE) Urine Cocaine Screen (NEGATIVE) U Marijuana (THC) Screen (NEGATIVE) Ethyl Alcohol (0) mg/dL Ketones Negative SARS-CoV-2 RNA (YURI) (NEGATIVE) 10/19/21 10/19/21 10/19/21 Range/Units 14:50 15:46 15:46 WBC (5.0-10.0) 10^3/uL RBC (4.6-6.2) 10^6/uL Hgb (14.0-18.0) g/dL Hct (40.0-54.0) % MCV (80-100) fL MCH (27.0-34.0) pg MCHC (33.0-35.0) g/dL Plt Count (150-450) 10^3/uL Neut % (Auto) (42.2-75.2) % Lymph % (Auto) (20.5-50.1) % Grainger % (Auto) (2-8) % Eos % (Auto) (1.0-3.0) % Baso % (Auto) (0.0-1.0) % Sodium 132 L (136-145) mmol/L Potassium 2.1 L* (3.5-5.1) mmol/L Chloride 84 L (98-107) mmol/L Carbon Dioxide 40 H (21-32) mmol/L Anion Gap 10.1 (7-13) mEq/L BUN 15 (7-18) mg/dL Creatinine 1.21 (0.70-1.30) mg/dL Est Cr Clr Drug Dosing 110.57 mL/min Estimated GFR (MDRD) > 60 BUN/Creatinine Ratio 12.4 (No establ ref range) Glucose 115 H (70-99) mg/dL POC Glucose (70-99) mg/dL Hemoglobin A1c (<5.7) % Lactic Acid (0.4-2.0) mmol/L Calcium 8.2 L (8.5-10.1) mg/dL Magnesium 1.1 L (1.8-2.4) mg/dL Total Bilirubin 2.2 H (0.2-1.0) mg/dL Direct Bilirubin (0.0-0.2) mg/dL Indirect Bilirubin AST 201 H (15-37) U/L ALT 105 H (16-63) U/L Alkaline Phosphatase 155 H (46-116) U/L Ammonia 12 (11-32) umol/L Troponin I High Sens (<=76) pg/mL C-Reactive Protein (0.0-0.9) mg/dL Total Protein 7.8 (6.4-8.2) g/dL Albumin 3.5 (3.4-5.0) g/dL Globulin 4.3 Albumin/Globulin Ratio 0.8 Lipase (73-393) U/L Urine Color (YELLOW) Urine Appearance (CLEAR) Urine pH (5.0-9.0) Ur Specific [place] (1.005-1.030) Urine Protein (NEGATIVE) Urine Glucose (UA) (NEGATIVE) Urine Ketones (NEGATIVE) Urine Occult Blood (NEGATIVE) Urine Nitrite (NEGATIVE) Urine Bilirubin (NEGATIVE) Urine Urobilinogen (0.2-1.0) mg/dL Ur Leukocyte Esterase (NEGATIVE) Urine RBC (0-5) /HPF Urine WBC (0-5/HPF) /HPF Ur Epithelial Cells (NOT SEEN) /HPF Amorphous Sediment (NOT SEEN) /HPF Urine Bacteria (0-FEW/HPF) /HPF Granular Casts (Auto) Urine Mucus (NOT SEEN) /LPF Urine Opiates Screen (NEGATIVE) Ur Oxycodone Screen (NEGATIVE) Urine Methadone Screen (NEGATIVE) Ur Barbiturates Screen (NEGATIVE) U Tricyclic Antidepress (NEGATIVE) Ur Phencyclidine Scrn (NEGATIVE) Ur Amphetamine Screen (NEGATIVE) U Methamphetamines Scrn (NEGATIVE) Urine MDMA Screen (NEGATIVE) U Benzodiazepines Scrn (NEGATIVE) Urine Cocaine Screen (NEGATIVE) U Marijuana (THC) Screen (NEGATIVE) Ethyl Alcohol (0) mg/dL Ketones SARS-CoV-2 RNA (YURI) Negative (NEGATIVE) 10/19/21 10/19/21 10/19/21 Range/Units 17:58 18:22 18:22 WBC (5.0-10.0) 10^3/uL RBC (4.6-6.2) 10^6/uL Hgb (14.0-18.0) g/dL Hct (40.0-54.0) % MCV (80-100) fL MCH (27.0-34.0) pg MCHC (33.0-35.0) g/dL Plt Count (150-450) 10^3/uL Neut % (Auto) (42.2-75.2) % Lymph % (Auto) (20.5-50.1) % Grainger % (Auto) (2-8) % Eos % (Auto) (1.0-3.0) % Baso % (Auto) (0.0-1.0) % Sodium (136-145) mmol/L Potassium (3.5-5.1) mmol/L Chloride (98-107) mmol/L Carbon Dioxide (21-32) mmol/L Anion Gap (7-13) mEq/L BUN (7-18) mg/dL Creatinine (0.70-1.30) mg/dL Est Cr Clr Drug Dosing mL/min Estimated GFR (MDRD) BUN/Creatinine Ratio (No establ ref range) Glucose (70-99) mg/dL POC Glucose (70-99) mg/dL Hemoglobin A1c (<5.7) % Lactic Acid 0.8 (0.4-2.0) mmol/L Calcium (8.5-10.1) mg/dL Magnesium (1.8-2.4) mg/dL Total Bilirubin (0.2-1.0) mg/dL Direct Bilirubin (0.0-0.2) mg/dL Indirect Bilirubin AST (15-37) U/L ALT (16-63) U/L Alkaline Phosphatase (46-116) U/L Ammonia (11-32) umol/L Troponin I High Sens (<=76) pg/mL C-Reactive Protein (0.0-0.9) mg/dL Total Protein (6.4-8.2) g/dL Albumin (3.4-5.0) g/dL Globulin Albumin/Globulin Ratio Lipase (73-393) U/L Urine Color Yvonne (YELLOW) Urine Appearance Clear (CLEAR) Urine pH 6.0 (5.0-9.0) Ur Specific [place] >= 1.030 (1.005-1.030) Urine Protein >=300 H (NEGATIVE) Urine Glucose (UA) 100 H (NEGATIVE) Urine Ketones 15 H (NEGATIVE) Urine Occult Blood Trace-intact H (NEGATIVE) Urine Nitrite Positive H (NEGATIVE) Urine Bilirubin Moderate H (NEGATIVE) Urine Urobilinogen 4.0 H (0.2-1.0) mg/dL Ur Leukocyte Esterase Negative (NEGATIVE) Urine RBC 5-10 H (0-5) /HPF Urine WBC 0-5 (0-5/HPF) /HPF Ur Epithelial Cells Few (NOT SEEN) /HPF Amorphous Sediment Few (NOT SEEN) /HPF Urine Bacteria Few (0-FEW/HPF) /HPF Granular Casts (Auto) Moderate Urine Mucus Moderate H (NOT SEEN) /LPF Urine Opiates Screen Negative (NEGATIVE) Ur Oxycodone Screen Negative (NEGATIVE) Urine Methadone Screen Negative (NEGATIVE) Ur Barbiturates Screen Negative (NEGATIVE) U Tricyclic Antidepress Negative (NEGATIVE) Ur Phencyclidine Scrn Negative (NEGATIVE) Ur Amphetamine Screen Negative (NEGATIVE) U Methamphetamines Scrn Negative (NEGATIVE) Urine MDMA Screen Negative (NEGATIVE) U Benzodiazepines Scrn Negative (NEGATIVE) Urine Cocaine Screen Negative (NEGATIVE) U Marijuana (THC) Screen Positive H (NEGATIVE) Ethyl Alcohol (0) mg/dL Ketones SARS-CoV-2 RNA (YURI) (NEGATIVE) 10/20/21 10/20/21 Range/Units 06:05 06:05 WBC 5.4 (5.0-10.0) 10^3/uL RBC 3.87 L (4.6-6.2) 10^6/uL Hgb 13.0 L D (14.0-18.0) g/dL Hct 37.6 L (40.0-54.0) % MCV 97.2 D (80-100) fL MCH 33.6 (27.0-34.0) pg MCHC 34.6 (33.0-35.0) g/dL Plt Count 164 (150-450) 10^3/uL Neut % (Auto) 70.0 (42.2-75.2) % Lymph % (Auto) 12.4 L (20.5-50.1) % [place] % (Auto) 17.0 H (2-8) % Eos % (Auto) 0.4 L (1.0-3.0) % Baso % (Auto) 0.2 (0.0-1.0) % Sodium 136 (136-145) mmol/L Potassium 3.6 D (3.5-5.1) mmol/L Chloride 96 L D (98-107) mmol/L Carbon Dioxide 33 H (21-32) mmol/L Anion Gap 10.6 (7-13) mEq/L BUN 10 (7-18) mg/dL Creatinine 0.76 (0.70-1.30) mg/dL Est Cr Clr Drug Dosing 176.04 mL/min Estimated GFR (MDRD) > 60 BUN/Creatinine Ratio (No establ ref range) Glucose 85 (70-99) mg/dL POC Glucose (70-99) mg/dL Hemoglobin A1c (<5.7) % Lactic Acid (0.4-2.0) mmol/L Calcium 7.2 L (8.5-10.1) mg/dL Magnesium (1.8-2.4) mg/dL Total Bilirubin 2.4 H (0.2-1.0) mg/dL Direct Bilirubin 1.1 H (0.0-0.2) mg/dL Indirect Bilirubin 1.3 AST 184 H (15-37) U/L ALT 82 H (16-63) U/L Alkaline Phosphatase 117 H (46-116) U/L Ammonia (11-32) umol/L Troponin I High Sens (<=76) pg/mL C-Reactive Protein (0.0-0.9) mg/dL Total Protein 5.9 L (6.4-8.2) g/dL Albumin 2.6 L (3.4-5.0) g/dL Globulin 3.3 Albumin/Globulin Ratio 0.79 Lipase 76 (73-393) U/L Urine Color (YELLOW) Urine Appearance (CLEAR) Urine pH (5.0-9.0) Ur Specific [place] (1.005-1.030) Urine Protein (NEGATIVE) Urine Glucose (UA) (NEGATIVE) Urine Ketones (NEGATIVE) Urine Occult Blood (NEGATIVE) Urine Nitrite (NEGATIVE) Urine Bilirubin (NEGATIVE) Urine Urobilinogen (0.2-1.0) mg/dL Ur Leukocyte Esterase (NEGATIVE) Urine RBC (0-5) /HPF Urine WBC (0-5/HPF) /HPF Ur Epithelial Cells (NOT SEEN) /HPF Amorphous Sediment (NOT SEEN) /HPF Urine Bacteria (0-FEW/HPF) /HPF Granular Casts (Auto) Urine Mucus (NOT SEEN) /LPF Urine Opiates Screen (NEGATIVE) Ur Oxycodone Screen (NEGATIVE) Urine Methadone Screen (NEGATIVE) Ur Barbiturates Screen (NEGATIVE) U Tricyclic Antidepress (NEGATIVE) Ur Phencyclidine Scrn (NEGATIVE) Ur Amphetamine Screen (NEGATIVE) U Methamphetamines Scrn (NEGATIVE) Urine MDMA Screen (NEGATIVE) U Benzodiazepines Scrn (NEGATIVE) Urine Cocaine Screen (NEGATIVE) U Marijuana (THC) Screen (NEGATIVE) Ethyl Alcohol (0) mg/dL Ketones SARS-CoV-2 RNA (YURI) (NEGATIVE) Result Diagrams: 10/20/21 06:05 10/20/21 06:05 Fareed Results Last 24 hrs: Microbiology 10/19/21 18:22 Urine Culture - Preliminary Urine, Voided No Growth Sepsis Event Note - Evaluation Sepsis Screening Result: No Definite Risk - Focused Exam Vital Signs: Vital Signs Temp Pulse Resp BP Pulse Ox 10/20/21 00:00 97.9 F 86 16 118/74 99 - Problem List & Annotations (1) Hypokalemia SNOMED Code(s): 85900486 Code(s): E87.6 - HYPOKALEMIA Status: Acute Current Visit: Yes (2) Hyponatremia SNOMED Code(s): 78788144 Code(s): E87.1 - HYPO-OSMOLALITY AND HYPONATREMIA Status: Acute Current Visit: Yes (3) Seizure SNOMED Code(s): 62050736 Code(s): R56.9 - UNSPECIFIED CONVULSIONS Status: Acute Current Visit: Yes (4) Alcohol abuse SNOMED Code(s): 65973012 Code(s): F10.10 - ALCOHOL ABUSE, UNCOMPLICATED Status: Acute Current Visit: Yes (5) Alcohol addiction SNOMED Code(s): 64578235 Code(s): F10.20 - ALCOHOL DEPENDENCE, UNCOMPLICATED Status: Acute Current Visit: Yes - Problem List Review Problem List Initiated/Reviewed/Updated: Yes - My Orders Last 24 Hours: My Active Orders 10/19/21 17:15 Telemetry Monitoring [Cardiac Monitoring] [RC] ,10/19/21 17:46 LORazepam [Ativan] See Protocol IVPUSH TITRATE PRN LORazepam [Ativan] See Protocol PO TITRATE PRN Seizure Precautions [OM.PC] Routine 10/19/21 18:10 Oxygen Therapy [RC] PRN Up With Assistance [RC] ASDIRECTED VTE/DVT Education [RC] , Vital Signs [RC] 00,04,08,12,16,20 Acetaminophen [TylenoL] 650 mg PO Q4H PRN Docusate Sodium [Colace] 100 mg PO BID PRN Ondansetron [Zofran ODT] 4 mg PO Q6H PRN Ondansetron [Zofran] 4 mg IVPUSH Q6H PRN Temazepam [Restoril] 15 mg PO BEDTIME PRN oxyCODONE 5 mg PO Q4H PRN Peripheral IV Insertion Adult [OM.PC] Routine Resuscitation Status Routine 10/19/21 18:11 Peripheral IV Care [RC] 00,04,08,12,16,20 10/19/21 21:00 Sodium Chloride 0.9% [Saline Flush] 10 ml FLUSH 0900,2100 10/19/21 22:00 Heparin Sodium 5,000 units SUBCUT Q8HR 10/20/21 08:00 Folic Acid 1 mg PO DAILY 10/20/21 09:00 Multivitamins w-Iron/Ca/FA/Min [Thera M Plus] 1 tab PO DAILY Thiamine [Vitamin B-1] 100 mg PO DAILY 10/21/21 05:11 MAGNESIUM [CHEM] AM PHOSPHORUS [CHEM] AM 10/21/21 05:15 BASIC METABOLIC PANEL,BMP [CHEM] AM CBC WITH AUTO DIFF [HEME] AM - Plan Plan:: Chronic Alcohol abuse Give thiamine folic acid, multivitamin Recheck electrolytes in AM Alcohol intoxication Hydrate well discussed alcohol addiction treatment options he is not interested in inpatient tx High risk for alcohol withdrawal has high ciwa scores use Ativan IV or PO per ciwa protocol Hyponatremia improved Will hydrate well Recheck in AM Severe hypokalemia improved cont IVF with IV KCL Recheck in AM Severe hypomagnesemia Replaced with IV magnesium Recheck in AM Abnormal liver enzymes Likely due to alcoholic hepatitis Obtain RUQ us r/o cholelithiasis, Check lft, lipase in AM Possible seizure Syncope Likely related to alcohol withdrawal Seizure precautions Given keppra in ER - Hold off on further antiseizure meds Lactic acidosis Likely related to seizure resolved dvt prophylaxis sq heparin
[2021-10-20] MEDS: Sodium Chloride 0.9% 10 ML Syringe FLUSH SCH ×2 (10:07→22:33)
[2021-10-21] MEDS: Sodium Chloride 0.9% with KCl 1,000 ML IV SCH ×2 (01:48→10:35)
[2021-10-21] MEDS: Heparin Sodium 5,000 Units/ML Vial SUBCUT SCH (06:00)
[2021-10-21 06:25] LABS: ANION GAP 13.5 mEq/L (7-13); CHLORIDE,CL 97 mmol/L (98-107); SODIUM,NA 133 mmol/L (136-145)
[2021-10-21 08:12] VITALS: BP 147/97; PULSE 96
[2021-10-21] MEDS: Multivitamins with Iron/Calcium/Folic Acid/Minerals Tab PO SCH (09:32)
[2021-10-21] MEDS: Folic Acid 1 MG Tab PO SCH (09:33)
[2021-10-21] MEDS: Thiamine 100 MG Tab PO SCH (09:33)
[2021-10-21] MEDS: Sodium Chloride 0.9% 10 ML Syringe FLUSH SCH (09:34)
--- NOTE | 2021-10-21 11:55 | PCM.DCSUM1 ---
Discharge Summary - Hospital Course Free Text/Narrative:: presented with confusion, seizure like activity, tremor Chronic Alcohol abuse Give thiamine folic acid, multivitamin Alcohol intoxication Hydrated well discussed alcohol addiction treatment options he is not interested in inpatient tx High risk for alcohol withdrawal had high ciwa scores used Ativan improved will discharge with a few doses of ativan prn Hyponatremia Severe hypokalemia Severe hypomagnesemia improved with replacement cont to supplement Abnormal liver enzymes Likely due to alcoholic hepatitis US is not available consider to follow up with RUQ us r/o cholelithiasis as out pt Possible seizure Syncope Likely related to alcohol withdrawal Seizure precautions Given keppra in ER - Hold off on further antiseizure meds Lactic acidosis Likely related to seizure resolved recommended to establish PMD and f/up early next week, out pt alcohol treatment, no driving re: potential seizure will stay with girlfriend Diagnosis: Stroke: No - Discharge Data Discharge Date: 10/21/21 Discharge Disposition: Home, Self-Care 01 Condition: Stable - Referral to Home Health Primary Care Physician: PCP None - Discharge Diagnosis/Problem(s) (1) Hypokalemia SNOMED Code(s): 89160110 ICD Code: E87.6 - HYPOKALEMIA Status: Acute Current Visit: Yes (2) Hyponatremia SNOMED Code(s): 34264324 ICD Code: E87.1 - HYPO-OSMOLALITY AND HYPONATREMIA Status: Acute Current Visit: Yes (3) Seizure SNOMED Code(s): 41355063 ICD Code: R56.9 - UNSPECIFIED CONVULSIONS Status: Acute Current Visit: Y es (4) Alcohol abuse SNOMED Code(s): 32857953 ICD Code: F10.10 - ALCOHOL ABUSE, UNCOMPLICATED Status: Acute Current Visit: Yes (5) Alcohol addiction SNOMED Code(s): 77172333 ICD Code: F10.20 - ALCOHOL DEPENDENCE, UNCOMPLICATED Status: Acute Current Visit: Yes - Discharge Plan *PRESCRIPTION DRUG MONITORING PROGRAM REVIEWED*: Not Applicable *COPY OF PRESCRIPTION DRUG MONITORING REPORT IN PATIENT AUBRIE: Not Applicable Prescriptions/Med Rec: LORazepam [Ativan] 0.5 mg PO Q6H PRN #5 tablet PRN Reason: tremors, anxiety Folic Acid 1 mg PO DAILY #14 tablet Magnesium Oxide 250 mg PO BIDM #6 tablet Phosphorus #1 [Neutra-Phos] 250 mg PO TID #6 tablet Thiamine [Vitamin B-1] 100 mg PO DAILY #14 tablet Home Medications: Home Meds Folic Acid 1 mg PO DAILY #14 tablet 10/21/21 [Rx] LORazepam [Ativan] 0.5 mg PO Q6H PRN #5 tablet 10/21/21 [Rx] Magnesium Oxide 250 mg PO BIDM #6 tablet 10/21/21 [Rx] Phosphorus #1 [Neutra-Phos] 250 mg PO TID #6 tablet 10/21/21 [Rx] Thiamine [Vitamin B-1] 100 mg PO DAILY #14 tablet 10/21/21 [Rx] Forms: ED Department Discharge Referrals: PCP,None [Primary Care Provider] - - Discharge Summary/Plan Comment DC Time >30 min.: No Total # of Minutes for Discharge Time: 25 min, discussion with girlfriend at bedside - General Info Date of Service: 10/21/21 Functional Status: Reports: Pain Controlled, Tolerating Diet, Ambulating - Review of Systems General: Denies: Fever Pulmonary: Denies: Shortness of Breath Cardiovascular: Denies: Chest Pain, Edema Gastrointestinal: Denies: Abdominal Pain Neurological: Denies: Confusion - Patient Data Vitals - Most Recent: Last Vital Signs Temp 97.3 F 10/21/21 08:11 Pulse 96 10/21/21 08:11 Resp 20 10/21/21 08:11 BP 147/97 H 10/21/21 08:11 Pulse Ox 99 10/21/21 08:11 Weight - Most Recent: 191 lb I&O - Last 24 hours: Intake & Output 10/20/21 10/21/21 10/21/21 22:59 06:59 14:59 Intake Total 1420 350 Balance 1420 350 Lab Results - Last 24 hrs: Laboratory Results - last 24 hr 10/21/21 10/21/21 Range/Units 05:30 05:30 WBC 5.8 (5.0-10.0) 10^3/uL RBC 3.86 L (4.6-6.2) 10^6/uL Hgb 13.1 L (14.0-18.0) g/dL Hct 37.3 L (40.0-54.0) % MCV 96.6 (80-100) fL MCH 33.9 (27.0-34.0) pg MCHC 35.1 H (33.0-35.0) g/dL Plt Count 187 (150-450) 10^3/uL Neut % (Auto) 67.9 (42.2-75.2) % Lymph % (Auto) 12.1 L (20.5-50.1) % [place] % (Auto) 19.0 H (2-8) % Eos % (Auto) 0.7 L (1.0-3.0) % Baso % (Auto) 0.3 (0.0-1.0) % Sodium 133 L (136-145) mmol/L Potassium 3.5 (3.5-5.1) mmol/L Chloride 97 L (98-107) mmol/L Carbon Dioxide 26 (21-32) mmol/L Anion Gap 13.5 H (7-13) mEq/L BUN 4 L (7-18) mg/dL Creatinine 0.64 L (0.70-1.30) mg/dL Est Cr Clr Drug Dosing 209.05 mL/min Estimated GFR (MDRD) > 60 Glucose 79 (70-99) mg/dL Calcium 8.1 L (8.5-10.1) mg/dL Phosphorus 1.9 L (2.6-4.7) mg/dL Magnesium 1.4 L (1.8-2.4) mg/dL KEMAL Results - Last 24 hrs: Microbiology 10/19/21 18:22 Urine Culture - Final Urine, Voided NO GROWTH AFTER 2 DAYS Med Orders - Current: Current Medications Acetaminophen (Acetaminophen 325 Mg Tab) 650 mg PO Q4H PRN PRN Reason: Pain (Mild 1-3)/fever Docusate Sodium (Docusate Sodium 100 Mg Cap) 100 mg PO BID PRN PRN Reason: Constipation Folic Acid (Folic Acid 1 Mg Tab) 1 mg PO DAILY [facility] Last Admin: 10/21/21 09:33 Dose: 1 mg Documented by: Heparin Sodium (Porcine) (Heparin Sodium 5,000 Units/Ml Vial) 5,000 units SUBCUT Q8HR [facility] Last Admin: 10/21/21 06:00 Dose: 5,000 units Documented by: Potassium Chloride/Sodium Chloride (Normal Saline With 40 Meq Kcl) 1,000 mls @ 150 mls/hr IV ASDIRECTED [facility] Last Admin: 10/21/21 10:35 Dose: 150 mls/hr Documented by: Lorazepam (Lorazepam 0.5 Mg Tab) 0 mg PO TITRATE PRN; Protocol PRN Reason: [facility] protocol Last Admin: 10/21/21 01:05 Dose: 2 mg Documented by: Lorazepam (Lorazepam 2 Mg/Ml Sdv) 0 mg IVPUSH TITRATE PRN; Protocol PRN Reason: [facility] protocol Last Admin: 10/20/21 22:41 Dose: 2 mg Documented by: Magnesium Oxide (Magnesium Oxide 250 Mg Tab) 250 mg PO BIDMEALS [facility] Stop: 10/22/21 08:01 Multivitamins/Minerals (Multivitamins With Iron/Calcium/Folic Acid/Minerals Tab) 1 tab PO DAILY [facility] Last Admin: 10/21/21 09:32 Dose: 1 tab Documented by: Ondansetron HCl (Ondansetron 4 Mg Tab.Dis) 4 mg PO Q6H PRN PRN Reason: nausea, able to take PO Ondansetron HCl (Ondansetron 4 Mg/2 Ml Sdv) 4 mg IVPUSH Q6H PRN PRN Reason: Nausea/Vomiting Oxycodone HCl (Oxycodone 5 Mg Tab) 5 mg PO Q4H PRN PRN Reason: Pain (moderate 4-6) Last Admin: 10/19/21 19:45 Dose: 5 mg Documented by: Sodium Chloride (Sodium Chloride 0.9% 10 Ml Syringe) 10 ml FLUSH 0900,2100 [facility] Last Admin: 10/21/21 09:34 Dose: 10 ml Documented by: Sodium Phosphate (Phosphorus #1 250 Mg Tab) 250 mg PO QID [facility] Temazepam (Temazepam 15 Mg Cap) 15 mg PO BEDTIME PRN PRN Reason: Sleep Thiamine HCl (Thiamine 100 Mg Tab) 100 mg PO DAILY [facility] Last Admin: 10/21/21 09:33 Dose: 100 mg Documented by: Discontinued Medications Levetiracetam 1,000 mg/ Premix 200 mls @ 800 mls/hr IV ONETIME ONE Stop: 10/19/21 14:29 Last Admin: 10/19/21 15:01 Dose: 800 mls/hr Documented by: Magnesium Sulfate 2 gm/ Premix 50 mls @ 25 mls/hr IV ONETIME ONE Stop: 10/19/21 17:03 Last Admin: 10/19/21 15:14 Dose: 25 mls/hr Documented by: Potassium Chloride 10 meq/ (Premix) 100 mls @ 50 mls/hr IV Q2H [facility] Stop: 10/20/21 05:14 Potassium Chloride 10 meq/ (Premix) 100 mls @ 50 mls/hr IV Q2H [facility] Stop: 10/20/21 07:29 Last Admin: 10/20/21 05:36 Dose: 50 mls/hr Documented by: - Exam General: Reports: Alert, Oriented Neck: Reports: Supple Lungs: Reports: Clear to Auscultation, Normal Respiratory Effort Cardiovascular: Reports: Regular Rate, Regular Rhythm GI/Abdominal Exam: Normal Bowel Sounds, Soft, Non-Tender Skin: Reports: Warm Neurological: Reports: No New Focal Deficit Psy/Mental Status: Reports: Alert, Normal Affect, Normal Mood
[2021-10-21] MEDS ORDERED: Phosphorus #1 250 MG Tab PO SCH (13:00)
== END 2021-10-21 12:30 | disposition home or self-care (01) | DRG 897 ==
LOC: DL.ED 13:49 → OBSVTOIN 16:18 → DL.MS 16:18
PROVIDERS: ADMIT Internal Medicine; ATTEND Internal Medicine
DX: F10.229 Alcohol dependence with intoxication, unspecified (principal); E87.1 Hypo-osmolality and hyponatremia; E87.2 Acidosis; E87.6 Hypokalemia; K70.10 Alcoholic hepatitis without ascites; E83.42 Hypomagnesemia; F10.239 Alcohol dependence with withdrawal, unspecified; R56.9 Unspecified convulsions; F10.288 Alcohol dependence with other alcohol-induced disorder; Z20.822 Contact with and (suspected) exposure to COVID-19; Z91.013 Allergy to seafood
CPT/HCPCS: 36415; 70450; 80048; 80053; 80076; 80305-QW; 80307; 81001; 82009; 82140; 82947; 83036; 83605; 83690; 83735; 84100; 84484; 85025; 86140; 87086; 99221; A9270-GY; J1644; J1953; J2060; J3475; J3480; U0002

== ENCOUNTER 2021-12-28 20:30 | Emergency (ER) | payer SELFPAY ==
[2021-12-28] MEDS ORDERED: LORazepam 2 MG/ML SDV IVPUSH ONE ×3 (20:46→22:54)
[2021-12-28] MEDS ORDERED: MVI, Adult with Vitamin K 10 ML, Folic Acid 1 MG, Thiamine 100 MG in Lactated Ringers 1... IV ONE ×4 (20:46)
[2021-12-28 21:13] LABS: ANION GAP 20.6 mEq/L (7-13)
[2021-12-28] MEDS ORDERED: Pantoprazole 40 MG Vial IVPUSH ONE (21:19)
[2021-12-28] MEDS ORDERED: Ondansetron 4 MG/2 ML SDV IVPUSH ONE (21:19)
[2021-12-28] MEDS ORDERED: Magnesium Sulfate/Water 2 GM in Premix Bag 1 BAG IV ONE (21:22)
[2021-12-28] MEDS ORDERED: Potassium Chloride 20 MEQ in Premix Bag 1 BAG IV ONE (21:29)
[2021-12-28 21:36] LABS: CHLORIDE,CL 85 mmol/L (98-107); SODIUM,NA 135 mmol/L (136-145)
[2021-12-28] MEDS ORDERED: Sodium Chloride 0.9% 1,000 ML IV ONE (22:07)
[2021-12-28] MEDS ORDERED: Midazolam 1 MG/ML 2 ML SDV IVPUSH ONE (22:36)
[2021-12-28] MEDS ORDERED: Midazolam 1 MG/ML 2 ML SDV ONE (22:38)
[2021-12-28 23:18] VITALS: BP 161/137; PULSE 124
== END 2021-12-28 23:56 ==
LOC: DL.ED 20:30
DX: U07.1 COVID-19 (principal); R56.9 Unspecified convulsions; F10.139 Alcohol abuse with withdrawal, unspecified; Z91.013 Allergy to seafood; Z20.822 Contact with and (suspected) exposure to COVID-19
CPT/HCPCS: 36415; 80053; 80307; 82150; 83690; 83735; 85025; 93005; 96365; 96367; 96368; 96375; 96376; 99285-25; C9113; J2060; J2250; J2405; J3360; J3411; J3475; J3480; J3490; J7120; U0002

== ENCOUNTER 2022-05-30 16:09 | Emergency (ER) | payer SELFPAY ==
[2022-05-30] MEDS ORDERED: LORazepam 1 MG Tab PO ONE ×2 (16:10→20:39)
[2022-05-30 17:30] LABS: ANION GAP 13.8 mEq/L (7-13); CHLORIDE,CL 85 mmol/L (98-107); SODIUM,NA 133 mmol/L (136-145)
[2022-05-30 17:36] LABS: ACETAMINOPHEN 0 ug/mL (10-30 (Therapeutic)); ESTIMATED GFR 92 mL/min (>=60)
[2022-05-30 18:10] LABS: CORONAVIRUS COVID-19 NAA NEGATIVE (NEGATIVE)
[2022-05-30] MEDS ORDERED: MVI, Adult with Vitamin K 10 ML, Folic Acid 1 MG, Thiamine 100 MG in Lactated Ringers 1... IV ONE ×4 (18:14)
[2022-05-30] MEDS ORDERED: Ondansetron 4 MG/2 ML SDV IVPUSH ONE (18:18)
[2022-05-30] MEDS ORDERED: Potassium Chloride Riders 10 MEQ in Premix Bag 1 BAG IV ONE (18:18)
[2022-05-30] MEDS ORDERED: LORazepam 2 MG/ML SDV IVPUSH ONE (18:18)
[2022-05-30 19:12] LABS: METHAMPHETAMINES,URINE NEGATIVE (NEGATIVE)
[2022-05-30 19:13] LABS: AMPHETAMINES,URINE NEGATIVE (NEGATIVE); BARBITURATES,URINE NEGATIVE (NEGATIVE); BENZODIAZEPINE,URINE POSITIVE (NEGATIVE); MDMA (ECSTASY), URINE NEGATIVE (NEGATIVE); METHADONE,URINE NEGATIVE (NEGATIVE); OPIATES,URINE NEGATIVE (NEGATIVE); OXYCODONE,URINE NEGATIVE (NEGATIVE); PHENCYCLIDINE,URINE NEGATIVE (NEGATIVE); TCA,URINE NEGATIVE (NEGATIVE)
[2022-05-30] MEDS ORDERED: Potassium Chloride 10 MEQ Tab.ER PO ONE (20:39)
[2022-05-30] MEDS ORDERED: LORazepam 1 MG Tab ONE (22:03)
[2022-05-30 23:15] VITALS: BP 131/84; PULSE 94
[2022-06-01 14:52] LABS: C.TRACHOMATIS BY TMA Negative (Negative); N.GONORRHOEAE BY TMA Negative (Negative)
== END 2022-05-30 22:48 | disposition home or self-care (01) ==
LOC: DL.ED 16:09
DX: F10.930 Alcohol use, unspecified with withdrawal, uncomplicated (principal); E87.6 Hypokalemia; Z91.013 Allergy to seafood; Z79.899 Other long term (current) drug therapy; Z20.822 Contact with and (suspected) exposure to COVID-19
CPT/HCPCS: 0240U; 36415; 80053; 80143; 80179; 80305; 80307; 81001; 82150; 83605; 83690; 84484; 85025; 87040; 87086; 87491; 87591; 93005; 96365; 96366; 96368; 96375; 99284; A9270; J2060; J2405; J3411; J3480; J7120; 93010; J3490

== ENCOUNTER 2022-06-25 17:06 | Emergency (ER) | payer SELFPAY ==
[2022-06-25 18:37] LABS: AMPHETAMINES,URINE NEGATIVE (NEGATIVE); BARBITURATES,URINE NEGATIVE (NEGATIVE); BENZODIAZEPINE,URINE NEGATIVE (NEGATIVE); MDMA (ECSTASY), URINE NEGATIVE (NEGATIVE); METHADONE,URINE NEGATIVE (NEGATIVE); METHAMPHETAMINES,URINE NEGATIVE (NEGATIVE); OPIATES,URINE NEGATIVE (NEGATIVE); OXYCODONE,URINE NEGATIVE (NEGATIVE); PHENCYCLIDINE,URINE NEGATIVE (NEGATIVE); TCA,URINE NEGATIVE (NEGATIVE)
[2022-06-25 18:45] LABS: ANION GAP 12.2 mEq/L (7-13); CHLORIDE,CL 81 mmol/L (98-107); SODIUM,NA 131 mmol/L (136-145)
[2022-06-25 18:58] LABS: ESTIMATED GFR 78 mL/min (>=60)
[2022-06-25 18:59] LABS: ACETAMINOPHEN < 1 ug/mL (10-30 (Therapeutic))
[2022-06-25] MEDS ORDERED: Potassium Chloride 20 MEQ in Premix Bag 1 BAG IV ONE (18:59)
[2022-06-25] MEDS ORDERED: Magnesium Sulfate/Water 2 GM in Premix Bag 1 BAG IV ONE (19:14)
[2022-06-25] MEDS ORDERED: LORazepam 2 MG/ML SDV IVPUSH ONE ×6 (19:37→21:45)
[2022-06-25] MEDS ORDERED: Sodium Chloride 0.9% 1,000 ML IV ONE (20:04)
[2022-06-25 20:15] VITALS: BP 135/105; PULSE 94
[2022-06-25] MEDS ORDERED: Haloperidol Lactate 5 MG/ML SDV IVPUSH ONE (21:55)
== END 2022-06-25 22:16 ==
LOC: DL.ED 17:06
DX: F10.131 Alcohol abuse with withdrawal delirium (principal); E87.6 Hypokalemia; E83.42 Hypomagnesemia; Z91.013 Allergy to seafood; Z20.822 Contact with and (suspected) exposure to COVID-19; Y90.0 Blood alcohol level of less than 20 mg/100 ml
CPT/HCPCS: 36415; 80053; 80143; 80179; 80305; 80307; 81001; 83735; 84443; 85025; 87086; 87635; 96365; 96366; 96374; 96375; 96376; 99284; J1630; J2060; J3480; J7030; U0002

== ENCOUNTER 2023-06-27 10:48 | Emergency (ER) | payer MEDICAID ==
[2023-06-27] MEDS ORDERED: Sodium Chloride 0.9% 10 ML Syringe FLUSH PRN (11:16)
[2023-06-27] MEDS ORDERED: LORazepam 2 MG/ML SDV IVPUSH ONE ×2 (11:17→14:03)
[2023-06-27] MEDS ORDERED: MVI, Adult with Vitamin K 10 ML, Folic Acid 1 MG, Thiamine 100 MG in Lactated Ringers 1... IV ONE ×4 (11:19)
[2023-06-27 11:31] LABS: BASOPHILS PERCENT AUTO 0.1 % (0.0-1.0); HEMATOCRIT 53.7 % (40.0-54.0); HEMOGLOBIN 18.8 g/dL (14.0-18.0); LYMPHOCYTES PERCENT AUTO 5.9 % (20.5-50.1); MEAN CORPUSCULAR HEMOGLOBIN 33.2 pg (27.0-34.0); MEAN CORPUSCULAR VOLUME 94.7 fL (80-100); MONOCYTES PERCENT AUTO 7.3 % (2-8); NEUTROPHILS PERCENT AUTO 86.7 % (42.2-75.2); PLATELET COUNT,PLT 350 10^3/uL (150-450); RED BLOOD CELL COUNT 5.67 10^6/uL (4.6-6.2); WHITE BLOOD CELL COUNT,WBC 10.9 10^3/uL (5.0-10.0)
[2023-06-27] MEDS: Ondansetron 4 MG/2 ML SDV ONE ×2 (11:33→11:34)
[2023-06-27] MEDS ORDERED: Ondansetron 4 MG/2 ML SDV IVPUSH ONE (11:33)
[2023-06-27 11:57] LABS: ETHANOL BLOOD MEDICAL < 3 mg/dL (0)
[2023-06-27 12:51] LABS: A/G RATIO 0.8; ALANINE AMINOTRANSFERASE,ALT 65 U/L (16-63); ALBUMIN 4.1 g/dL (3.4-5.0); ALKALINE PHOSPHATASE 164 U/L (46-116); ANION GAP 13.9 mEq/L (7-13); ASPARTATE AMNIOTRANSFERASE,AST 56 U/L (15-37); BILIRUBIN TOTAL 1.3 mg/dL (0.2-1.0); BLOOD UREA NITROGEN,BUN 23 mg/dL (7-18); BUN/CREATININE RATIO 16.4 (No establ ref range); CALCIUM 10.1 mg/dL (8.5-10.1); CARBON DIOXIDE,CO2 42 mmol/L (21-32); CHLORIDE,CL 86 mmol/L (98-107); EST CRCL DRUG DOSING (CG) 91.33 mL/min; GLUCOSE RANDOM 127 mg/dL (70-99); POTASSIUM,K 3.9 mmol/L (3.5-5.1); SODIUM,NA 138 mmol/L (136-145)
[2023-06-27 12:52] LABS: ESTIMATED GFR 70 mL/min (>=60)
[2023-06-27] MEDS ORDERED: Sodium Chloride 0.9% 1,000 ML IV ONE (13:00)
[2023-06-27 13:39] VITALS: BP 142/101; PULSE 70
[2023-06-27 14:10] LABS: AMPHETAMINES,URINE NEGATIVE (NEGATIVE); BARBITURATES,URINE NEGATIVE (NEGATIVE); BENZODIAZEPINE,URINE POSITIVE (NEGATIVE); MDMA (ECSTASY), URINE NEGATIVE (NEGATIVE); METHADONE,URINE NEGATIVE (NEGATIVE); METHAMPHETAMINES,URINE NEGATIVE (NEGATIVE); OPIATES,URINE NEGATIVE (NEGATIVE); OXYCODONE,URINE NEGATIVE (NEGATIVE); PHENCYCLIDINE,URINE NEGATIVE (NEGATIVE); TCA,URINE NEGATIVE (NEGATIVE)
== END 2023-06-27 15:15 | disposition home or self-care (01) ==
LOC: DL.ED 10:48
DX: F10.230 Alcohol dependence with withdrawal, uncomplicated (principal); Y90.0 Blood alcohol level of less than 20 mg/100 ml
CPT/HCPCS: 36415; 80053; 80305-QW; 80307; 85025; 96361; 96365; 96375; 96376; 99284; 99284-25; J2060; J2405; J3411; J3490; J7030; J7120

== ENCOUNTER 2023-07-16 22:38 | Inpatient (IN) | payer SELFPAY ==
[2023-07-16] MEDS ORDERED: Sodium Chloride 0.9% 10 ML Syringe FLUSH PRN (22:49)
[2023-07-16] MEDS ORDERED: Sodium Chloride 0.9% 1,000 ML IV ONE ×2 (22:49→23:37)
[2023-07-16 23:02] LABS: BASOPHILS PERCENT AUTO 0.1 % (0.0-1.0); HEMATOCRIT 50.1 % (40.0-54.0); LYMPHOCYTES PERCENT AUTO 7.7 % (20.5-50.1); MEAN CORPUSCULAR HGB CONC 35.9 g/dL (33.0-35.0); MEAN CORPUSCULAR VOLUME 91.9 fL (80-100); MONOCYTES PERCENT AUTO 6.1 % (2-8); NEUTROPHILS PERCENT AUTO 86.1 % (42.2-75.2); PLATELET COUNT,PLT 131 10^3/uL (150-450); RED BLOOD CELL COUNT 5.45 10^6/uL (4.6-6.2); WHITE BLOOD CELL COUNT,WBC 11.6 10^3/uL (5.0-10.0)
[2023-07-16] MEDS ORDERED: Ondansetron 4 MG/2 ML SDV IVPUSH ONE (23:03)
[2023-07-16] MEDS ORDERED: LORazepam 2 MG/ML SDV IVPUSH ONE (23:18)
[2023-07-16 23:25] LABS: AMPHETAMINES,URINE NEGATIVE (NEGATIVE); BARBITURATES,URINE NEGATIVE (NEGATIVE); BENZODIAZEPINE,URINE NEGATIVE (NEGATIVE); MDMA (ECSTASY), URINE NEGATIVE (NEGATIVE); METHADONE,URINE NEGATIVE (NEGATIVE); METHAMPHETAMINES,URINE NEGATIVE (NEGATIVE); OPIATES,URINE NEGATIVE (NEGATIVE); OXYCODONE,URINE NEGATIVE (NEGATIVE); PHENCYCLIDINE,URINE NEGATIVE (NEGATIVE); TCA,URINE NEGATIVE (NEGATIVE)
[2023-07-16 23:26] LABS: BLOOD UREA NITROGEN,BUN 17 mg/dL (7-18)
[2023-07-16 23:54] LABS: A/G RATIO 0.8; ALANINE AMINOTRANSFERASE,ALT 150 U/L (16-63); ALBUMIN 3.6 g/dL (3.4-5.0); ALKALINE PHOSPHATASE 188 U/L (46-116); ANION GAP 18.2 mEq/L (7-13); ASPARTATE AMNIOTRANSFERASE,AST 189 U/L (15-37); CARBON DIOXIDE,CO2 33 mmol/L (21-32); CHLORIDE,CL 93 mmol/L (98-107); CREATININE 1.31 mg/dL (0.70-1.30); EST CRCL DRUG DOSING (CG) 96.84 mL/min; GLUCOSE RANDOM 162 mg/dL (70-99); POTASSIUM,K 3.2 mmol/L (3.5-5.1); SODIUM,NA 141 mmol/L (136-145)
[2023-07-16 23:55] LABS: ESTIMATED GFR 76 mL/min (>=60); LACTIC ACID 2.2 mmol/L (0.4-2.0)
[2023-07-16 23:56] LABS: ETHANOL BLOOD MEDICAL < 3 mg/dL (0); MAGNESIUM 0.9 mg/dL (1.8-2.4)
[2023-07-17] MEDS ORDERED: Magnesium Sulfate/Water 2 GM in Premix Bag 1 BAG IV ONE ×2 (00:34→00:39)
[2023-07-17] MEDS: Sodium Chloride 0.9% 1,000 ML IV SCH ×2 (02:00→12:04)
[2023-07-17] MEDS: LORazepam 2 MG/ML SDV IVPUSH PRN ×6 (02:00→14:59)
[2023-07-17] MEDS ORDERED: LORazepam 2 MG/ML SDV IVPUSH ONE (04:10)
[2023-07-17] MEDS ORDERED: Metoprolol Tartrate 25 MG Tab PO SCH (04:30)
[2023-07-17] MEDS: Thiamine 100 MG Tab PO SCH ×2 (04:42→08:59)
[2023-07-17] MEDS: chlordiazePOXIDE 25 MG Cap PO SCH ×2 (04:42→09:55)
[2023-07-17] MEDS: Folic Acid 1 MG Tab PO SCH ×2 (04:42→08:59)
[2023-07-17] MEDS ORDERED: Ondansetron 4 MG Tab.DIS PO PRN (08:22)
[2023-07-17] MEDS ORDERED: Enoxaparin 40 MG/0.4 ML Syringe SUBCUT SCH (09:00)
[2023-07-17] MEDS ORDERED: Multivitamin Tab PO SCH (09:00)
[2023-07-17 10:10] LABS: BASOPHILS PERCENT AUTO 0.3 % (0.0-1.0); EOSINOPHILS PERCENT AUTO 0.3 % (1.0-3.0); HEMATOCRIT 45.3 % (40.0-54.0); HEMOGLOBIN 15.7 g/dL (14.0-18.0); LYMPHOCYTES PERCENT AUTO 9.6 % (20.5-50.1); MEAN CORPUSCULAR HEMOGLOBIN 33.1 pg (27.0-34.0); MEAN CORPUSCULAR HGB CONC 34.7 g/dL (33.0-35.0); MEAN CORPUSCULAR VOLUME 95.4 fL (80-100); MONOCYTES PERCENT AUTO 8.7 % (2-8); NEUTROPHILS PERCENT AUTO 81.1 % (42.2-75.2); PLATELET COUNT,PLT 84 10^3/uL (150-450); RED BLOOD CELL COUNT 4.75 10^6/uL (4.6-6.2); WHITE BLOOD CELL COUNT,WBC 7.5 10^3/uL (5.0-10.0)
[2023-07-17 10:25] LABS: ANION GAP 7.8 mEq/L (7-13); CALCIUM 8.7 mg/dL (8.5-10.1); CREATININE 1.19 mg/dL (0.70-1.30); EST CRCL DRUG DOSING (CG) 106.49 mL/min; POTASSIUM,K 2.8 mmol/L (3.5-5.1)
[2023-07-17] MEDS ORDERED: Potassium Chloride 10 MEQ Tab.ER PO ONE (11:44)
[2023-07-17 11:57] VITALS: BP 126/89; PULSE 88
[2023-07-17] MEDS ORDERED: Potassium Chloride 20 MEQ in Premix Bag 1 BAG IV ONE ×2 (12:00→14:00)
== END 2023-07-17 16:20 | disposition left against medical advice (07) | DRG 894 ==
LOC: DL.ED 22:38 → DL.MS 07-17 00:44
PROVIDERS: ADMIT Hospitalist; ATTEND Hospitalist
DX: F10.230 Alcohol dependence with withdrawal, uncomplicated (principal); F41.9 Anxiety disorder, unspecified; E83.42 Hypomagnesemia; R56.9 Unspecified convulsions; Z20.822 Contact with and (suspected) exposure to COVID-19; K70.10 Alcoholic hepatitis without ascites; F12.90 Cannabis use, unspecified, uncomplicated; E87.6 Hypokalemia; Z91.013 Allergy to seafood
CPT/HCPCS: 36415; 71045; 80048; 80053; 80305-QW; 80307; 83605; 83735; 84484; 85025; 86317; 86803; 87804; 93005; A9270-GY; J1650; J2060; J2405; J3475; J3480; J3490; J7030; U0002

== ENCOUNTER 2023-07-18 02:11 | Emergency (ER) | payer SELFPAY ==
[2023-07-18] MEDS ORDERED: Sodium Chloride 0.9% 10 ML Syringe FLUSH PRN (02:23)
[2023-07-18] MEDS ORDERED: LORazepam 2 MG/ML SDV IVPUSH ONE (02:23)
[2023-07-18 02:29] VITALS: BP 148/86; PULSE 112
[2023-07-18] MEDS ORDERED: Diphtheria,Pertussis(Acell),Tetanus Vaccine 0.5 ML Syringe IM ONE (02:29)
[2023-07-18] MEDS ORDERED: MVI, Adult with Vitamin K 10 ML, Folic Acid 1 MG, Thiamine 100 MG in Lactated Ringers 1... IV ONE ×4 (02:35)
[2023-07-18 02:37] LABS: BASOPHILS PERCENT AUTO 0.1 % (0.0-1.0); EOSINOPHILS PERCENT AUTO 0.1 % (1.0-3.0); HEMATOCRIT 41.4 % (40.0-54.0); HEMOGLOBIN 14.7 g/dL (14.0-18.0); LYMPHOCYTES PERCENT AUTO 10.4 % (20.5-50.1); MEAN CORPUSCULAR HEMOGLOBIN 33.7 pg (27.0-34.0); MEAN CORPUSCULAR HGB CONC 35.5 g/dL (33.0-35.0); MONOCYTES PERCENT AUTO 9.2 % (2-8); NEUTROPHILS PERCENT AUTO 80.2 % (42.2-75.2); PLATELET COUNT,PLT 90 10^3/uL (150-450); RED BLOOD CELL COUNT 4.36 10^6/uL (4.6-6.2)
[2023-07-18] MEDS ORDERED: Take Home: LORazepam 1 MG Tab, 2 Tab Pack PO PRN (02:49)
== END 2023-07-18 04:00 ==
LOC: DL.ED 02:11
DX: S81.811A Laceration without foreign body, right lower leg, initial encounter (principal); S80.11XA Contusion of right lower leg, initial encounter; F10.139 Alcohol abuse with withdrawal, unspecified; R41.0 Disorientation, unspecified; Z23 Encounter for immunization; Z91.013 Allergy to seafood; W18.30XA Fall on same level, unspecified, initial encounter; Y93.02 Activity, running
CPT/HCPCS: 36415; 73562; 80307; 85025; 90471; 90715; 96365; 96375; 99283; A9270; J2060; J3411; J7120; J3490

== ENCOUNTER 2023-09-22 03:42 | Emergency (ER) | payer SELFPAY ==
[2023-09-22] MEDS ORDERED: MVI, Adult with Vitamin K 10 ML, Folic Acid 1 MG, Thiamine 100 MG in Lactated Ringers 1... IV ONE ×4 (03:59)
[2023-09-22] MEDS ORDERED: Sodium Chloride 0.9% 10 ML Syringe FLUSH PRN (04:00)
[2023-09-22] MEDS ORDERED: LORazepam 2 MG/ML SDV IVPUSH ONE ×3 (04:00→06:45)
[2023-09-22 04:13] LABS: BASOPHILS PERCENT AUTO 0.6 % (0.0-1.0); HEMATOCRIT 41.3 % (40.0-54.0); HEMOGLOBIN 14.6 g/dL (14.0-18.0); LYMPHOCYTES PERCENT AUTO 15.5 % (20.5-50.1); MEAN CORPUSCULAR HEMOGLOBIN 33.7 pg (27.0-34.0); MEAN CORPUSCULAR HGB CONC 35.4 g/dL (33.0-35.0); MEAN CORPUSCULAR VOLUME 95.4 fL (80-100); NEUTROPHILS PERCENT AUTO 68.9 % (42.2-75.2); PLATELET COUNT,PLT 195 10^3/uL (150-450); RED BLOOD CELL COUNT 4.33 10^6/uL (4.6-6.2); WHITE BLOOD CELL COUNT,WBC 6.3 10^3/uL (5.0-10.0)
[2023-09-22 04:22] LABS: A/G RATIO 0.8; ALBUMIN 3.8 g/dL (3.4-5.0); ANION GAP 27.1 mEq/L (7-13); BILIRUBIN TOTAL 2.6 mg/dL (0.2-1.0); BUN/CREATININE RATIO 6.3 (No establ ref range); CREATININE 0.95 mg/dL (0.70-1.30); EST CRCL DRUG DOSING (CG) 134.6 mL/min; POTASSIUM,K 3.1 mmol/L (3.5-5.1); PROTEIN TOTAL,TP 8.5 g/dL (6.4-8.2)
[2023-09-22 04:23] VITALS: BP 118/103; PULSE 122
[2023-09-22] MEDS ORDERED: diphenhydrAMINE 50 MG/ML SDV IVPUSH ONE (04:31)
[2023-09-22] MEDS ORDERED: Potassium Chloride 20 MEQ in Premix Bag 1 BAG IV ONE ×2 (04:38→07:05)
[2023-09-22] MEDS ORDERED: Sodium Chloride 0.9% 1,000 ML IV ONE ×4 (04:40→05:42)
[2023-09-22] MEDS ORDERED: Magnesium Sulfate/Water 2 GM in Premix Bag 1 BAG IV ONE ×2 (04:53→07:05)
[2023-09-22 04:56] LABS: AMYLASE 80 U/L (25-115); LIPASE 199 U/L (16-77)
[2023-09-22 05:00] LABS: ACETAMINOPHEN 0 ug/mL (10-30 (Therapeutic)); C-REACTIVE PROTEIN < 0.50 ng/dL (<=0.50)
[2023-09-22 05:14] LABS: INR 1.1 (0.9-1.2); PROTHROMBIN TIME 11.2 SEC (9.0-12.0); PTT,PARTIAL THROMBOPLSTIN TIME 24.3 SEC (22.0-34.0)
[2023-09-22] MEDS ORDERED: Iopamidol 612 MG/ML 100 ML Bottle IVPUSH ONE (05:40)
[2023-09-22 05:47] LABS: BASE EXCESS ARTERIAL 3 mmol/L ((-2)-(+3)); BICARBONATE,ARTERIAL 25.4 mmol/L (22-26); O2 DELIVERY DEVICE ROOM AIR; O2 SATURATION ARTERIAL 96 % (95-100); PCO2 ARTERIAL 34 mmHg (35-45); PH,ARTERIAL 7.49 (7.35-7.45); PO2 ARTERIAL 76 mmHg (70-100)
[2023-09-22 08:30] LABS: AMPHETAMINES,URINE NEGATIVE (NEGATIVE); BARBITURATES,URINE NEGATIVE (NEGATIVE); BENZODIAZEPINE,URINE POSITIVE (NEGATIVE); MDMA (ECSTASY), URINE NEGATIVE (NEGATIVE); METHADONE,URINE NEGATIVE (NEGATIVE); METHAMPHETAMINES,URINE NEGATIVE (NEGATIVE); OPIATES,URINE NEGATIVE (NEGATIVE); OXYCODONE,URINE NEGATIVE (NEGATIVE); PHENCYCLIDINE,URINE NEGATIVE (NEGATIVE); TCA,URINE NEGATIVE (NEGATIVE)
[2023-09-23 08:06] LABS: ALLEN TEST POSITIVE
== END 2023-09-22 09:52 ==
LOC: DL.ED 03:42
DX: F10.231 Alcohol dependence with withdrawal delirium (principal); E87.6 Hypokalemia; E83.42 Hypomagnesemia; E87.20 Acidosis, unspecified; E87.3 Alkalosis; Y90.2 Blood alcohol level of 40-59 mg/100 ml; Z91.013 Allergy to seafood
CPT/HCPCS: 36415; 36600; 74177; 80053; 80143; 80179; 80305; 80307; 82150; 82803; 83605; 83690; 83735; 84145; 84484; 85025; 85610; 85730; 86140; 93005; 96365; 96366; 96367; 96375; 96376; 99285; J1200; J2060; J3411; J3475; J3480; J7030; J7120; Q9967; J3490

== ENCOUNTER 2023-12-29 14:33 | Observation (INO) | payer SELFPAY ==
[2023-12-29] MEDS: Ondansetron 4 MG Tab.DIS PO ONE (14:58)
[2023-12-29 15:10] LABS: BASOPHILS PERCENT AUTO 0.1 % (0.0-1.0); EOSINOPHILS PERCENT AUTO 0.1 % (1.0-3.0); HEMATOCRIT 49.1 % (40.0-54.0); LYMPHOCYTES PERCENT AUTO 2.8 % (20.5-50.1); MEAN CORPUSCULAR HEMOGLOBIN 34.5 pg (27.0-34.0); MEAN CORPUSCULAR HGB CONC 36.7 g/dL (33.0-35.0); MEAN CORPUSCULAR VOLUME 94.2 fL (80-100); MONOCYTES PERCENT AUTO 9.3 % (2-8); NEUTROPHILS PERCENT AUTO 87.7 % (42.2-75.2); PLATELET COUNT,PLT 156 10^3/uL (150-450); RED BLOOD CELL COUNT 5.21 10^6/uL (4.6-6.2); WHITE BLOOD CELL COUNT,WBC 10.7 10^3/uL (5.0-10.0)
[2023-12-29 15:24] LABS: ALANINE AMINOTRANSFERASE,ALT 151 U/L (16-63); ALBUMIN 4.3 g/dL (3.4-5.0); ALKALINE PHOSPHATASE 181 U/L (46-116); ANION GAP 19.8 mEq/L (7-13); ASPARTATE AMNIOTRANSFERASE,AST 207 U/L (15-37); BILIRUBIN TOTAL 4.2 mg/dL (0.2-1.0); BLOOD UREA NITROGEN,BUN 9 mg/dL (7-18); BUN/CREATININE RATIO 8.7 (No establ ref range); CALCIUM 9.2 mg/dL (8.5-10.1); CARBON DIOXIDE,CO2 32 mmol/L (21-32); CHLORIDE,CL 88 mmol/L (98-107); CREATININE 1.04 mg/dL (0.70-1.30); EST CRCL DRUG DOSING (CG) 118.86 mL/min; GLUCOSE RANDOM 170 mg/dL (70-99); LIPASE 31 U/L (16-77); POTASSIUM,K 2.8 mmol/L (3.5-5.1); PROTEIN TOTAL,TP 8.6 g/dL (6.4-8.2); SODIUM,NA 137 mmol/L (136-145)
[2023-12-29 15:28] LABS: ESTIMATED GFR 100 mL/min (>=60)
[2023-12-29] MEDS: Diazepam 5 MG Tab PO ONE (15:28)
[2023-12-29 15:29] LABS: ETHANOL BLOOD MEDICAL < 3 mg/dL (0); MAGNESIUM 0.9 mg/dL (1.8-2.4)
[2023-12-29] MEDS: Potassium Chloride 10 MEQ Tab.ER PO ONE (16:08)
[2023-12-29] MEDS: Lactated Ringers 1,000 ML IV ONE ×2 (16:08→17:06)
[2023-12-29] MEDS: Magnesium Sulfate/Water 2 GM in Premix Bag 1 BAG IV ONE (16:08)
[2023-12-29] MEDS: Potassium Chloride 20 MEQ in Premix Bag 1 BAG IV ONE ×2 (17:06→19:50)
[2023-12-29] MEDS ORDERED: Docusate Sodium 100 MG Cap PO PRN (18:11)
[2023-12-29] MEDS ORDERED: Acetaminophen/HYDROcodone 325-5 MG Tab PO PRN (18:11)
[2023-12-29] MEDS ORDERED: LORazepam 2 MG/ML SDV IV PRN (18:15)
[2023-12-29] MEDS: LORazepam 0.5 MG Tab PO PRN (18:38)
[2023-12-29] MEDS: Thiamine 100 MG in Sodium Chloride 0.9% 50 ML IV ONE (19:49)
[2023-12-29] MEDS: Lactated Ringers 1,000 ML IV SCH (19:50)
[2023-12-29] MEDS: Ondansetron 4 MG/2 ML SDV IVPUSH PRN (19:50)
[2023-12-29] MEDS: Melatonin 3 MG Tab PO PRN (19:55)
[2023-12-29] MEDS: Pantoprazole 40 MG Vial IVPUSH SCH (19:58)
[2023-12-29] MEDS: ClonazePAM 0.5 MG Tab PO SCH (20:01)
[2023-12-29] MEDS: Potassium Chloride 10 MEQ Tab.ER PO SCH (20:02)
[2023-12-30 02:36] LABS: APPEARANCE,URINE CLEAR (CLEAR); BILIRUBIN,URINE SMALL (NEGATIVE); COLOR,URINE ORANGE (YELLOW); GLUCOSE,URINE NEGATIVE (NEGATIVE); KETONES,URINE TRACE (NEGATIVE); LEUKOCYTE ESTERASE,URINE NEGATIVE (NEGATIVE); OCCULT BLOOD,URINE NEGATIVE (NEGATIVE); PH,URINE 8.5 (5.0-9.0); PROTEIN,URINE 100 (NEGATIVE)
[2023-12-30 02:37] LABS: NITRITE,URINE NEGATIVE (NEGATIVE)
[2023-12-30 02:39] LABS: BACTERIA,URINE FEW /HPF (0-FEW/HPF); EPITHELIAL CELLS,URINE OCCASIONAL /HPF (NOT SEEN); HYALINE CASTS,URINE RARE; MUCUS,URINE MODERATE /LPF (NOT SEEN); RBC,URINE 0-5 /HPF (0-5); WBC,URINE NOT SEEN /HPF (0-5/HPF)
[2023-12-30 06:43] LABS: ANION GAP 9.7 mEq/L (7-13); CALCIUM 8.5 mg/dL (8.5-10.1); CREATININE 0.86 mg/dL (0.70-1.30); EST CRCL DRUG DOSING (CG) 146.45 mL/min; POTASSIUM,K 2.7 mmol/L (3.5-5.1)
[2023-12-30] MEDS ORDERED: Potassium Chloride 10 MEQ Tab.ER PO SCH (08:00)
[2023-12-30] MEDS: Potassium Chloride 10 MEQ Tab.ER PO ONE ×2 (08:49→12:14)
[2023-12-30] MEDS: Folic Acid 1 MG Tab PO SCH (08:49)
[2023-12-30] MEDS: Multivitamin Tab PO SCH (08:49)
[2023-12-30] MEDS: Thiamine 100 MG Tab PO SCH (08:49)
[2023-12-30] MEDS: Benzocaine/Cetylpyridinium/Menthol Lozenge MUCMEM PRN (12:37)
[2023-12-30] MEDS: Potassium Chloride 10 MEQ Tab.ER PO SCH ×2 (17:56→21:10)
[2023-12-31 06:43] LABS: ANION GAP 11.3 mEq/L (7-13); CALCIUM 8.6 mg/dL (8.5-10.1); CREATININE 0.86 mg/dL (0.70-1.30); EST CRCL DRUG DOSING (CG) 146.45 mL/min; MAGNESIUM 1.5 mg/dL (1.8-2.4); POTASSIUM,K 4.3 mmol/L (3.5-5.1)
[2023-12-31] MEDS: Acetaminophen 325 MG Tab PO PRN (08:18)
[2023-12-31] MEDS: Magnesium Oxide 400 MG Tab PO ONE (11:01)
[2023-12-31 11:11] VITALS: BP 129/67; PULSE 89
== END 2023-12-31 11:12 | disposition home or self-care (01) ==
LOC: DL.ED 14:33 → DL.MS 16:43
PROVIDERS: ADMIT Internal Medicine; ATTEND Internal Medicine
DX: F10.139 Alcohol abuse with withdrawal, unspecified (principal); E87.6 Hypokalemia; E83.42 Hypomagnesemia; Z79.899 Other long term (current) drug therapy
CPT/HCPCS: 36415; 80048; 80053; 80307; 81001; 83690; 83735; 85025; 96361; 96365; 96366; 96367; 96368; 96375; 96376; 99222; 99232; 99238; 99285; A9270; C9113; G0378; J2405; J3411; J3475; J3480; J3490; J7120

== ENCOUNTER 2024-01-22 02:26 | Emergency (ER) | payer SELFPAY ==
[2024-01-22 02:51] VITALS: BP 139/97; PULSE 126
[2024-01-22 02:52] LABS: BASOPHILS PERCENT AUTO 0.1 % (0.0-1.0); HEMATOCRIT 46.6 % (40.0-54.0); HEMOGLOBIN 16.8 g/dL (14.0-18.0); LYMPHOCYTES PERCENT AUTO 12.1 % (20.5-50.1); MEAN CORPUSCULAR HEMOGLOBIN 33.3 pg (27.0-34.0); MEAN CORPUSCULAR HGB CONC 36.1 g/dL (33.0-35.0); MEAN CORPUSCULAR VOLUME 92.3 fL (80-100); MONOCYTES PERCENT AUTO 9.9 % (2-8); NEUTROPHILS PERCENT AUTO 77.9 % (42.2-75.2); PLATELET COUNT,PLT 165 10^3/uL (150-450); RED BLOOD CELL COUNT 5.05 10^6/uL (4.6-6.2); WHITE BLOOD CELL COUNT,WBC 9.3 10^3/uL (5.0-10.0)
[2024-01-22] MEDS: Sodium Chloride 0.9% 10 ML Syringe FLUSH PRN (02:59)
[2024-01-22] MEDS: Thiamine 200 MG/2 ML MDV IVPUSH ONE (03:00)
[2024-01-22] MEDS: Lactated Ringers 1,000 ML IV ONE (03:00)
[2024-01-22] MEDS: Ondansetron 4 MG/2 ML SDV IVPUSH ONE (03:01)
[2024-01-22 03:04] LABS: A/G RATIO 0.9; ANION GAP 23.6 mEq/L (7-13); BILIRUBIN TOTAL 1.3 mg/dL (0.2-1.0); BUN/CREATININE RATIO 5.6 (No establ ref range); CALCIUM 9.2 mg/dL (8.5-10.1); CREATININE 0.9 mg/dL (0.70-1.30); EST CRCL DRUG DOSING (CG) 141.12 mL/min; POTASSIUM,K 4.6 mmol/L (3.5-5.1); PROTEIN TOTAL,TP 8.7 g/dL (6.4-8.2)
[2024-01-22 03:06] LABS: MAGNESIUM 0.8 mg/dL (1.8-2.4)
[2024-01-22] MEDS ORDERED: Magnesium Sulfate/Water 2 GM in Premix Bag 3 BAG IV ONE (03:15)
[2024-01-22] MEDS: Magnesium Sulfate/Water 2 GM in Premix Bag 1 BAG IV SCH (03:25)
[2024-01-22] MEDS: diphenhydrAMINE 50 MG/ML SDV IVPUSH ONE (04:01)
[2024-01-22] MEDS: Metoclopramide 10 MG/2 ML SDV IVPUSH ONE (04:02)
[2024-01-22] MEDS: Sodium Chloride 0.9% 1,000 ML IV ONE (04:04)
[2024-01-22] MEDS: LORazepam 1 MG Tab PO ONE (04:41)
== END 2024-01-22 06:23 | disposition home or self-care (01) ==
LOC: DL.ED 02:26
DX: F10.930 Alcohol use, unspecified with withdrawal, uncomplicated (principal); E83.42 Hypomagnesemia; R74.01 Elevation of levels of liver transaminase levels; Z91.013 Allergy to seafood
CPT/HCPCS: 36415; 80053; 83735; 85025; 96365; 96375; 99283; 99284; A9270; J1200; J2405; J2765; J3360; J3411; J3475; J7030; J7120; J3490

== ENCOUNTER 2024-02-07 02:22 | Inpatient (IN) | payer SELFPAY ==
[2024-02-07] MEDS: Sodium Chloride 0.9% 10 ML Syringe FLUSH PRN (03:01)
[2024-02-07 03:09] LABS: BASOPHILS PERCENT AUTO 0.3 % (0.0-1.0); HEMATOCRIT 45.1 % (40.0-54.0); LYMPHOCYTES PERCENT AUTO 3.4 % (20.5-50.1); MEAN CORPUSCULAR HEMOGLOBIN 33.3 pg (27.0-34.0); MEAN CORPUSCULAR HGB CONC 35.5 g/dL (33.0-35.0); MEAN CORPUSCULAR VOLUME 93.8 fL (80-100); MONOCYTES PERCENT AUTO 7.9 % (2-8); NEUTROPHILS PERCENT AUTO 88.4 % (42.2-75.2); PLATELET COUNT,PLT 157 10^3/uL (150-450); RED BLOOD CELL COUNT 4.81 10^6/uL (4.6-6.2); WHITE BLOOD CELL COUNT,WBC 6.7 10^3/uL (5.0-10.0)
[2024-02-07] MEDS: MVI, Adult with Vitamin K 10 ML, Folic Acid 1 MG, Thiamine 100 MG in Lactated Ringers 1... IV ONE (03:38)
[2024-02-07] MEDS: Ondansetron 4 MG/2 ML SDV IVPUSH ONE (03:38)
[2024-02-07 03:42] LABS: INR 1.1 (0.9-1.2); PTT,PARTIAL THROMBOPLSTIN TIME 22.3 SEC (22.0-34.0)
[2024-02-07 04:34] LABS: LACTIC ACID 11.5 mmol/L (0.4-2.0)
[2024-02-07] MEDS: Sodium Chloride 0.9% 1,000 ML IV ONE ×2 (04:48)
[2024-02-07 04:50] LABS: A/G RATIO 0.9; ALANINE AMINOTRANSFERASE,ALT 157 U/L (16-63); ALBUMIN 3.7 g/dL (3.4-5.0); ALKALINE PHOSPHATASE 170 U/L (46-116); AMYLASE 58 U/L (25-115); ANION GAP 30.2 mEq/L (7-13); ASPARTATE AMNIOTRANSFERASE,AST 255 U/L (15-37); BILIRUBIN TOTAL 2.3 mg/dL (0.2-1.0); BLOOD UREA NITROGEN,BUN 5 mg/dL (7-18); BUN/CREATININE RATIO 4.1 (No establ ref range); CALCIUM 9.2 mg/dL (8.5-10.1); CARBON DIOXIDE,CO2 16 mmol/L (21-32); CHLORIDE,CL 94 mmol/L (98-107); CREATININE 1.23 mg/dL (0.70-1.30); EST CRCL DRUG DOSING (CG) 103.26 mL/min; GLUCOSE RANDOM 211 mg/dL (70-99); LIPASE 87 U/L (16-77); POTASSIUM,K 3.2 mmol/L (3.5-5.1); SODIUM,NA 137 mmol/L (136-145)
[2024-02-07 04:52] LABS: C-REACTIVE PROTEIN < 0.50 ng/dL (<=0.50); ESTIMATED GFR 82 mL/min (>=60); ETHANOL BLOOD MEDICAL < 3 mg/dL (0); MAGNESIUM 0.9 mg/dL (1.8-2.4)
[2024-02-07] MEDS: diphenhydrAMINE 50 MG/ML SDV IVPUSH ONE (05:42)
[2024-02-07] MEDS: Magnesium Sulfate/Water 2 GM in Premix Bag 1 BAG IV ONE ×2 (05:42→19:30)
[2024-02-07] MEDS: NS with KCl 40mEq 1,000 ML IV SCH (05:57)
[2024-02-07] MEDS: Ondansetron 4 MG/2 ML SDV IV ONE (07:56)
[2024-02-07] MEDS: LORazepam 2 MG/ML SDV IVPUSH ONE (07:56)
[2024-02-07 07:59] LABS: BASE EXCESS VENOUS 3.3 mmol/l ((-2)-(+3)); BICARBONATE,VENOUS 26 mmol/l (19-25); O2 SATURATION VENOUS 76.6 % (60-80); PCO2 VENOUS 34 mmHg (41-51); PH,VENOUS 7.49 (7.31-7.41); PO2 VENOUS 41 mmHg (35-42)
[2024-02-07 08:00] LABS: O2 DELIVERY DEVICE ROOM AIR
[2024-02-07 08:07] LABS: APPEARANCE,URINE CLEAR (CLEAR); BILIRUBIN,URINE NEGATIVE (NEGATIVE); COLOR,URINE YELLOW (YELLOW); GLUCOSE,URINE NEGATIVE (NEGATIVE); KETONES,URINE 40 (NEGATIVE); LEUKOCYTE ESTERASE,URINE NEGATIVE (NEGATIVE); NITRITE,URINE NEGATIVE (NEGATIVE); OCCULT BLOOD,URINE NEGATIVE (NEGATIVE); PH,URINE 8.5 (5.0-9.0); PROTEIN,URINE 100 (NEGATIVE); UROBILINOGEN,URINE 0.2 mg/dL (0.2-1.0)
[2024-02-07 08:10] LABS: HEMOGLOBIN A1C 5.1 % (<5.7)
[2024-02-07 08:11] LABS: BENZODIAZEPINE,URINE POSITIVE (NEGATIVE); METHAMPHETAMINES,URINE NEGATIVE (NEGATIVE)
[2024-02-07 08:12] LABS: AMPHETAMINES,URINE NEGATIVE (NEGATIVE); BARBITURATES,URINE NEGATIVE (NEGATIVE); MDMA (ECSTASY), URINE NEGATIVE (NEGATIVE); METHADONE,URINE NEGATIVE (NEGATIVE); OPIATES,URINE NEGATIVE (NEGATIVE); OXYCODONE,URINE NEGATIVE (NEGATIVE); PHENCYCLIDINE,URINE NEGATIVE (NEGATIVE); TCA,URINE NEGATIVE (NEGATIVE)
[2024-02-07 08:28] LABS: WBC,URINE 0-5 /HPF (0-5/HPF)
[2024-02-07 08:29] LABS: BACTERIA,URINE FEW /HPF (0-FEW/HPF); EPITHELIAL CELLS,URINE FEW /HPF (NOT SEEN); HYALINE CASTS,URINE FEW; MUCUS,URINE MODERATE /LPF (NOT SEEN); RBC,URINE 0-5 /HPF (0-5)
[2024-02-07] MEDS ORDERED: Flumazenil 0.1 MG/ML 5 ML MDV IVPUSH PRN (11:25)
[2024-02-07] MEDS ORDERED: Ibuprofen 600 MG Tab PO PRN (11:30)
[2024-02-07] MEDS ORDERED: Sennosides/Docusate Sodium 50-8.6 MG Tab PO PRN (11:30)
[2024-02-07] MEDS ORDERED: Ketorolac 30 MG/ML SDV IVPUSH PRN (11:30)
[2024-02-07] MEDS ORDERED: Naloxone 2 MG/2 ML Syringe IVPUSH PRN (11:30)
[2024-02-07] MEDS ORDERED: Albuterol/Ipratropium 3.0-0.5 MG/3 ML Neb Soln NEB PRN (11:30)
[2024-02-07] MEDS ORDERED: Magnesium Hydroxide 400 MG/5 ML Susp 30 ML Cup PO PRN (11:30)
[2024-02-07] MEDS ORDERED: Polyethylene Glycol 3350 Powder 17 GM Packet PO PRN (11:30)
[2024-02-07] MEDS: Pantoprazole 40 MG Vial IVPUSH ONE (11:47)
[2024-02-07] MEDS: Scopalamine 1mg/3day Transdermal Patch TOP ONE (11:48)
[2024-02-07] MEDS: cloNIDine 0.1 MG Tab PO ONE (11:49)
[2024-02-07] MEDS: Gabapentin 300 MG Cap PO ONE (11:49)
[2024-02-07] MEDS: Ondansetron 4 MG/2 ML SDV IVPUSH PRN (19:30)
[2024-02-07] MEDS: Check Patch TRDERM SCH (20:00)
[2024-02-07] MEDS: cloNIDine 0.1 MG Tab PO SCH (20:00)
[2024-02-07] MEDS: Gabapentin 300 MG Cap PO SCH (20:00)
[2024-02-07] MEDS: Pantoprazole 40 MG Vial IVPUSH SCH (20:00)
[2024-02-08] MEDS: HYDROmorphone 0.5 MG/0.5 ML Syringe IVPUSH PRN (04:00)
[2024-02-08 06:22] LABS: BASOPHILS PERCENT AUTO 0.5 % (0.0-1.0); EOSINOPHILS PERCENT AUTO 1.2 % (1.0-3.0); HEMATOCRIT 43.9 % (40.0-54.0); HEMOGLOBIN 14.9 g/dL (14.0-18.0); LYMPHOCYTES PERCENT AUTO 16.1 % (20.5-50.1); MEAN CORPUSCULAR HEMOGLOBIN 33.3 pg (27.0-34.0); MEAN CORPUSCULAR HGB CONC 33.9 g/dL (33.0-35.0); MEAN CORPUSCULAR VOLUME 98.2 fL (80-100); MONOCYTES PERCENT AUTO 9.6 % (2-8); NEUTROPHILS PERCENT AUTO 72.6 % (42.2-75.2); PLATELET COUNT,PLT 126 10^3/uL (150-450); RED BLOOD CELL COUNT 4.47 10^6/uL (4.6-6.2)
[2024-02-08 06:47] LABS: A/G RATIO 0.77; ANION GAP 9.4 mEq/L (7-13); BILIRUBIN TOTAL 2.5 mg/dL (0.2-1.0); BUN/CREATININE RATIO 7.7 (No establ ref range); CALCIUM 8.4 mg/dL (8.5-10.1); CREATININE 0.91 mg/dL (0.70-1.30); EST CRCL DRUG DOSING (CG) 140.51 mL/min; POTASSIUM,K 3.4 mmol/L (3.5-5.1); PROTEIN TOTAL,TP 6.9 g/dL (6.4-8.2)
[2024-02-08] MEDS: Sodium Chloride 0.9% 1,000 ML IV SCH (09:44)
[2024-02-08] MEDS: Potassium Chloride 10 MEQ Tab.ER PO ONE (09:44)
[2024-02-08] MEDS: Multivitamin Tab PO SCH (21:00)
[2024-02-08] MEDS: Folic Acid 1 MG Tab PO SCH (21:00)
[2024-02-08] MEDS: Thiamine 100 MG Tab PO SCH (21:00)
[2024-02-09 06:23] LABS: BASOPHILS PERCENT AUTO 0.5 % (0.0-1.0); EOSINOPHILS PERCENT AUTO 2.4 % (1.0-3.0); HEMATOCRIT 43.4 % (40.0-54.0); LYMPHOCYTES PERCENT AUTO 13.2 % (20.5-50.1); MEAN CORPUSCULAR HEMOGLOBIN 33.6 pg (27.0-34.0); MEAN CORPUSCULAR HGB CONC 34.6 g/dL (33.0-35.0); MEAN CORPUSCULAR VOLUME 97.1 fL (80-100); MONOCYTES PERCENT AUTO 6.5 % (2-8); NEUTROPHILS PERCENT AUTO 77.4 % (42.2-75.2); PLATELET COUNT,PLT 123 10^3/uL (150-450); RED BLOOD CELL COUNT 4.47 10^6/uL (4.6-6.2); WHITE BLOOD CELL COUNT,WBC 5.5 10^3/uL (5.0-10.0)
[2024-02-09 06:43] LABS: ANION GAP 10.1 mEq/L (7-13); BILIRUBIN TOTAL 1.7 mg/dL (0.2-1.0); BUN/CREATININE RATIO 10.8 (No establ ref range); CALCIUM 8.5 mg/dL (8.5-10.1); CREATININE 0.65 mg/dL (0.70-1.30); EST CRCL DRUG DOSING (CG) 196.72 mL/min; MAGNESIUM 1.5 mg/dL (1.8-2.4); POTASSIUM,K 4.1 mmol/L (3.5-5.1)
[2024-02-09 06:46] LABS: A/G RATIO 0.75
[2024-02-09] MEDS: Magnesium Sulfate/Water 2 GM in Premix Bag 1 BAG IV ONE (08:51)
[2024-02-09] MEDS: Haloperidol Lactate 5 MG/ML SDV IM PRN (20:00)
[2024-02-10] MEDS: Acetaminophen/Butalbital/Caffeine 325-50-40 MG Tab PO PRN (03:15)
[2024-02-10 06:47] LABS: BASOPHILS PERCENT AUTO 0.3 % (0.0-1.0); EOSINOPHILS PERCENT AUTO 2.1 % (1.0-3.0); HEMATOCRIT 44.4 % (40.0-54.0); HEMOGLOBIN 14.9 g/dL (14.0-18.0); MEAN CORPUSCULAR HGB CONC 33.6 g/dL (33.0-35.0); MEAN CORPUSCULAR VOLUME 98.4 fL (80-100); NEUTROPHILS PERCENT AUTO 78.6 % (42.2-75.2); PLATELET COUNT,PLT 145 10^3/uL (150-450); RED BLOOD CELL COUNT 4.51 10^6/uL (4.6-6.2); WHITE BLOOD CELL COUNT,WBC 6.3 10^3/uL (5.0-10.0)
[2024-02-10 07:02] LABS: ALBUMIN 3.1 g/dL (3.4-5.0); BUN/CREATININE RATIO 14.8 (No establ ref range); CALCIUM 8.8 mg/dL (8.5-10.1); CREATININE 0.81 mg/dL (0.70-1.30); EST CRCL DRUG DOSING (CG) 157.86 mL/min; MAGNESIUM 1.5 mg/dL (1.8-2.4); PROTEIN TOTAL,TP 7.3 g/dL (6.4-8.2)
[2024-02-10 07:03] LABS: A/G RATIO 0.74
[2024-02-10 11:58] VITALS: BP 120/83; PULSE 80
== END 2024-02-10 13:20 | disposition home or self-care (01) | DRG 896 ==
LOC: DL.ED 02:22 → DL.MS 09:59
PROVIDERS: ADMIT Internal Medicine; ATTEND Family Medicine Adult Medicine
PROC: HZ2ZZZZ Detoxification Services for Substance Abuse Treatment (ICD-10-PCS; principal; 2024-02-07)
DX: F10.232 Alcohol dependence with withdrawal with perceptual disturbance (principal); K85.20 Alcohol induced acute pancreatitis without necrosis or infection; E87.20 Acidosis, unspecified; E72.20 Disorder of urea cycle metabolism, unspecified; F41.9 Anxiety disorder, unspecified; E83.42 Hypomagnesemia; E87.6 Hypokalemia; K70.9 Alcoholic liver disease, unspecified; R73.9 Hyperglycemia, unspecified; R56.9 Unspecified convulsions; I10 Essential (primary) hypertension; E87.8 Other disorders of electrolyte and fluid balance, not elsewhere classified; E80.6 Other disorders of bilirubin metabolism; K70.10 Alcoholic hepatitis without ascites; F12.90 Cannabis use, unspecified, uncomplicated; E16.2 Hypoglycemia, unspecified; Z91.013 Allergy to seafood; Z79.899 Other long term (current) drug therapy
CPT/HCPCS: 36415; 71045; 80053; 80305-QW; 80307; 81001; 82009; 82140; 82150; 82803; 82947; 83036; 83605; 83690; 83735; 84145; 84484; 85025; 85610; 85651; 85730; 86140; 87040; 93005; 93010; 96365; 96366; 96367; 96368; 96375; 96376; 99285; 99285-25; A9270-GY; C9113; J1170; J1200; J1630; J2060; J2405; J3360; J3411; J3475; J3480; J3490; J7030; J7120

== ENCOUNTER 2024-03-31 12:01 | Inpatient (IN) | payer MEDICAID ==
[2024-03-31] MEDS: LORazepam 2 MG/ML SDV IVPUSH ONE (12:32)
[2024-03-31] MEDS: MVI, Adult with Vitamin K 10 ML, Folic Acid 1 MG, Thiamine 100 MG in Lactated Ringers 1... IV ONE (12:37)
[2024-03-31 12:38] LABS: BASOPHILS PERCENT AUTO 0.3 % (0.0-1.0); EOSINOPHILS PERCENT AUTO 0.5 % (1.0-3.0); HEMATOCRIT 40.2 % (40.0-54.0); HEMOGLOBIN 14.5 g/dL (14.0-18.0); LYMPHOCYTES PERCENT AUTO 35.3 % (20.5-50.1); MEAN CORPUSCULAR HEMOGLOBIN 33.7 pg (27.0-34.0); MEAN CORPUSCULAR HGB CONC 36.1 g/dL (33.0-35.0); MEAN CORPUSCULAR VOLUME 93.5 fL (80-100); MONOCYTES PERCENT AUTO 15.4 % (2-8); NEUTROPHILS PERCENT AUTO 48.5 % (42.2-75.2); PLATELET COUNT,PLT 249 10^3/uL (150-450)
[2024-03-31] MEDS: Ondansetron 4 MG/2 ML SDV IVPUSH ONE (12:39)
[2024-03-31] MEDS: Sodium Chloride 0.9% 10 ML Syringe FLUSH PRN (12:40)
[2024-03-31] MEDS: Magnesium Sulfate/D5W 1 GM/100 ML BAG IV ONE (12:46)
[2024-03-31 12:57] LABS: A/G RATIO 0.9; ALBUMIN 3.7 g/dL (3.4-5.0); ANION GAP 21.3 mEq/L (7-13); BILIRUBIN TOTAL 2.3 mg/dL (0.2-1.0); BUN/CREATININE RATIO 7.4 (No establ ref range); CREATININE 1.63 mg/dL (0.70-1.30); EST CRCL DRUG DOSING (CG) 77.75 mL/min; MAGNESIUM 1.2 mg/dL (1.8-2.4); POTASSIUM,K 3.3 mmol/L (3.5-5.1)
[2024-03-31 13:31] LABS: PHOSPHORUS 1.9 mg/dL (2.6-4.7)
[2024-03-31 14:11] LABS: CORONAVIRUS COVID-19 NAA NEGATIVE (NEGATIVE); INFLUENZA A NAA NEGATIVE (NEGATIVE); INFLUENZA B NAA NEGATIVE (NEGATIVE); RESPIRATORY SYNCYTIAL VIR NAA NEGATIVE (NEGATIVE)
[2024-03-31] MEDS ORDERED: Metoprolol Tartrate 5 MG/5 ML SDV IVPUSH PRN (14:50)
[2024-03-31] MEDS ORDERED: hydrALAZINE 20 MG/ML SDV IVPUSH PRN (14:50)
[2024-03-31] MEDS ORDERED: Sennosides/Docusate Sodium 50-8.6 MG Tab PO PRN (14:52)
[2024-03-31] MEDS ORDERED: Ondansetron 4 MG/2 ML SDV IVPUSH PRN (14:52)
[2024-03-31] MEDS ORDERED: Magnesium Hydroxide 400 MG/5 ML Susp 30 ML Cup PO PRN (14:52)
[2024-03-31] MEDS ORDERED: HYDROmorphone 0.5 MG/0.5 ML Syringe IVPUSH PRN (14:52)
[2024-03-31] MEDS ORDERED: Albuterol/Ipratropium 3.0-0.5 MG/3 ML Neb Soln NEB PRN (14:52)
[2024-03-31] MEDS ORDERED: Ibuprofen 600 MG Tab PO PRN (14:52)
[2024-03-31] MEDS ORDERED: Polyethylene Glycol 3350 Powder 17 GM Packet PO PRN (14:52)
[2024-03-31] MEDS ORDERED: Naloxone 2 MG/2 ML Syringe IVPUSH PRN (14:52)
[2024-03-31] MEDS: Potassium Chloride 20 MEQ in Premix Bag 1 BAG IV ONE (15:50)
[2024-03-31] MEDS: Lactated Ringers 1,000 ML IV SCH (15:50)
[2024-03-31] MEDS: Pantoprazole 40 MG Vial IVPUSH ONE (15:50)
[2024-03-31] MEDS: Magnesium Sulfate/Water 2 GM in Premix Bag 1 BAG IV ONE (15:51)
[2024-03-31] MEDS: PHENobarbitaL sodium 260 MG in Sodium Chloride 0.9% 100 ML IV ONE (15:51)
[2024-03-31] MEDS: cloNIDine 0.1 MG Tab PO ONE (15:52)
[2024-03-31] MEDS: Potassium Chloride 10 MEQ Tab.ER PO ONE (17:48)
[2024-03-31] MEDS: Phosphorus #1 250 MG Tab PO SCH (17:48)
[2024-03-31] MEDS: Sucralfate 1 GM Tab PO SCH (17:48)
[2024-03-31 19:35] LABS: APPEARANCE,URINE CLEAR (CLEAR); BILIRUBIN,URINE NEGATIVE (NEGATIVE); COLOR,URINE YELLOW (YELLOW); GLUCOSE,URINE NEGATIVE (NEGATIVE); KETONES,URINE NEGATIVE (NEGATIVE); LEUKOCYTE ESTERASE,URINE NEGATIVE (NEGATIVE); NITRITE,URINE NEGATIVE (NEGATIVE); OCCULT BLOOD,URINE NEGATIVE (NEGATIVE); PH,URINE 8.5 (5.0-9.0); PROTEIN,URINE NEGATIVE (NEGATIVE)
[2024-03-31 19:38] LABS: AMPHETAMINES,URINE NEGATIVE (NEGATIVE); BARBITURATES,URINE POSITIVE (NEGATIVE); BENZODIAZEPINE,URINE POSITIVE (NEGATIVE); MDMA (ECSTASY), URINE NEGATIVE (NEGATIVE); METHADONE,URINE NEGATIVE (NEGATIVE); METHAMPHETAMINES,URINE NEGATIVE (NEGATIVE); OPIATES,URINE NEGATIVE (NEGATIVE); OXYCODONE,URINE NEGATIVE (NEGATIVE); PHENCYCLIDINE,URINE NEGATIVE (NEGATIVE); TCA,URINE NEGATIVE (NEGATIVE)
[2024-03-31] MEDS: Gabapentin 100 MG Cap PO SCH (22:20)
[2024-03-31] MEDS: PHENobarbital 64.8 MG Tab PO SCH (22:20)
[2024-03-31] MEDS: cloNIDine 0.1 MG Tab PO SCH (22:21)
[2024-03-31] MEDS: Pantoprazole 40 MG Vial IVPUSH SCH (22:25)
[2024-04-01 06:34] LABS: BASOPHILS PERCENT AUTO 0.4 % (0.0-1.0); EOSINOPHILS PERCENT AUTO 1.3 % (1.0-3.0); HEMATOCRIT 32.2 % (40.0-54.0); HEMOGLOBIN 11.2 g/dL (14.0-18.0); LYMPHOCYTES PERCENT AUTO 19.1 % (20.5-50.1); MEAN CORPUSCULAR HEMOGLOBIN 34.1 pg (27.0-34.0); MEAN CORPUSCULAR HGB CONC 34.8 g/dL (33.0-35.0); MEAN CORPUSCULAR VOLUME 98.2 fL (80-100); MONOCYTES PERCENT AUTO 13.3 % (2-8); NEUTROPHILS PERCENT AUTO 65.9 % (42.2-75.2); PLATELET COUNT,PLT 171 10^3/uL (150-450); RED BLOOD CELL COUNT 3.28 10^6/uL (4.6-6.2); WHITE BLOOD CELL COUNT,WBC 5.4 10^3/uL (5.0-10.0)
[2024-04-01 06:52] LABS: ALBUMIN 2.7 g/dL (3.4-5.0); ANION GAP 4.5 mEq/L (7-13); BILIRUBIN TOTAL 1.5 mg/dL (0.2-1.0); BUN/CREATININE RATIO 9.1 (No establ ref range); CALCIUM 8.2 mg/dL (8.5-10.1); CREATININE 0.99 mg/dL (0.70-1.30); EST CRCL DRUG DOSING (CG) 128.01 mL/min; PHOSPHORUS 3.5 mg/dL (2.6-4.7); POTASSIUM,K 2.5 mmol/L (3.5-5.1); PROTEIN TOTAL,TP 6.1 g/dL (6.4-8.2)
[2024-04-01 06:57] LABS: A/G RATIO 0.79
[2024-04-01] MEDS: Potassium Chloride 10 MEQ Tab.ER PO SCH (08:22)
[2024-04-01] MEDS: Magnesium Oxide 400 MG Tab PO SCH (08:25)
[2024-04-01] MEDS: PHENobarbitaL sodium 260 MG in Sodium Chloride 0.9% 100 ML IV PRN (11:47)
[2024-04-01] MEDS: Multivitamin Tab PO SCH (21:31)
[2024-04-01] MEDS: Thiamine 100 MG Tab PO SCH (21:31)
[2024-04-01] MEDS: Folic Acid 1 MG Tab PO SCH (21:31)
[2024-04-02 06:44] LABS: BASOPHILS PERCENT AUTO 0.6 % (0.0-1.0); EOSINOPHILS PERCENT AUTO 2.2 % (1.0-3.0); HEMATOCRIT 32.3 % (40.0-54.0); HEMOGLOBIN 11.1 g/dL (14.0-18.0); LYMPHOCYTES PERCENT AUTO 17.8 % (20.5-50.1); MEAN CORPUSCULAR HEMOGLOBIN 34.6 pg (27.0-34.0); MEAN CORPUSCULAR HGB CONC 34.4 g/dL (33.0-35.0); MEAN CORPUSCULAR VOLUME 100.6 fL (80-100); MONOCYTES PERCENT AUTO 12.5 % (2-8); NEUTROPHILS PERCENT AUTO 66.9 % (42.2-75.2); PLATELET COUNT,PLT 169 10^3/uL (150-450); RED BLOOD CELL COUNT 3.21 10^6/uL (4.6-6.2); WHITE BLOOD CELL COUNT,WBC 6.4 10^3/uL (5.0-10.0)
[2024-04-02 07:12] LABS: ALBUMIN 2.5 g/dL (3.4-5.0); ANION GAP 8.9 mEq/L (7-13); BILIRUBIN TOTAL 0.8 mg/dL (0.2-1.0); BUN/CREATININE RATIO 12.3 (No establ ref range); CALCIUM 8.1 mg/dL (8.5-10.1); CREATININE 0.81 mg/dL (0.70-1.30); EST CRCL DRUG DOSING (CG) 156.45 mL/min; MAGNESIUM 1.6 mg/dL (1.8-2.4); PHOSPHORUS 2.1 mg/dL (2.6-4.7); POTASSIUM,K 3.9 mmol/L (3.5-5.1); PROTEIN TOTAL,TP 5.9 g/dL (6.4-8.2)
[2024-04-02 07:17] LABS: A/G RATIO 0.74
[2024-04-02] MEDS: oxyCODONE 5 MG Tab PO PRN (08:47)
[2024-04-02] MEDS: Magnesium Sulfate/Water 2 GM in Premix Bag 1 BAG IV ONE (09:10)
[2024-04-03 07:03] LABS: BASOPHILS PERCENT AUTO 0.6 % (0.0-1.0); EOSINOPHILS PERCENT AUTO 3.4 % (1.0-3.0); HEMATOCRIT 34.2 % (40.0-54.0); HEMOGLOBIN 11.4 g/dL (14.0-18.0); LYMPHOCYTES PERCENT AUTO 14.7 % (20.5-50.1); MEAN CORPUSCULAR HEMOGLOBIN 34.1 pg (27.0-34.0); MEAN CORPUSCULAR HGB CONC 33.3 g/dL (33.0-35.0); MEAN CORPUSCULAR VOLUME 102.4 fL (80-100); MONOCYTES PERCENT AUTO 13.9 % (2-8); NEUTROPHILS PERCENT AUTO 67.4 % (42.2-75.2); PLATELET COUNT,PLT 182 10^3/uL (150-450); RED BLOOD CELL COUNT 3.34 10^6/uL (4.6-6.2); WHITE BLOOD CELL COUNT,WBC 7.1 10^3/uL (5.0-10.0)
[2024-04-03 07:24] LABS: ALBUMIN 2.6 g/dL (3.4-5.0); BILIRUBIN TOTAL 0.4 mg/dL (0.2-1.0); BUN/CREATININE RATIO 11.4 (No establ ref range); CREATININE 0.7 mg/dL (0.70-1.30); EST CRCL DRUG DOSING (CG) 181.04 mL/min; MAGNESIUM 1.5 mg/dL (1.8-2.4); PHOSPHORUS 1.1 mg/dL (2.6-4.7); PROTEIN TOTAL,TP 6.1 g/dL (6.4-8.2)
[2024-04-03 07:25] LABS: A/G RATIO 0.74
[2024-04-03] MEDS: Magnesium Sulfate/Water 2 GM in Premix Bag 1 BAG IV ONE (07:58)
[2024-04-03] MEDS: Phosphorus #1 250 MG Tab PO ONE (10:24)
[2024-04-03 10:42] VITALS: PULSE 87
[2024-04-03 10:46] VITALS: BP 119/71
== END 2024-04-03 12:44 | disposition home or self-care (01) | DRG 896 ==
LOC: DL.ED 12:01 → DL.MS 13:36
PROVIDERS: ADMIT Internal Medicine; ATTEND Internal Medicine
DX: F10.239 Alcohol dependence with withdrawal, unspecified (principal); K85.20 Alcohol induced acute pancreatitis without necrosis or infection; E87.20 Acidosis, unspecified; N17.9 Acute kidney failure, unspecified; E87.1 Hypo-osmolality and hyponatremia; F41.9 Anxiety disorder, unspecified; E83.42 Hypomagnesemia; K70.10 Alcoholic hepatitis without ascites; E87.6 Hypokalemia; E87.8 Other disorders of electrolyte and fluid balance, not elsewhere classified; R73.9 Hyperglycemia, unspecified; E83.39 Other disorders of phosphorus metabolism; E80.6 Other disorders of bilirubin metabolism; E88.09 Other disorders of plasma-protein metabolism, not elsewhere classified; E86.0 Dehydration; Z91.013 Allergy to seafood
CPT/HCPCS: 0241U; 36415; 71045; 80053; 80305-QW; 80307; 81003; 82550; 83605; 83690; 83735; 84100; 84484; 85025; 93005; 93010; 96365; 96368; 96375; 99284; 99285-25; A9270-GY; C9113; J2060; J2405; J2560; J3360; J3411; J3475; J3480; J3490; J7120